=== PATIENT | male | born 1960 | race African-American/Black ===

== ENCOUNTER 2017-08-05 08:03 | Inpatient (IN) | payer MEDICAID ==
[~2017-08-05] VITALS: Ht 172.7 cm; Wt 80.6 kg
[2017-08-05] VITALS (10 sets, daily range): BP systolic 92–135; BP diastolic 60–79
[~2017-08-05 08:03] MED LIST: ADLT ASA LOW81 MG PO; BABY ASPIRIN81 MG OR; BACTRIM DS1 TAB PO; CEPHALEXIN500 MG OR; FLEXERIL PO; GLUCOTROL10 MG OR; HUMALOG PEN100 MG/M1 SC; HUMALOG100 MG/ML SC; LISINOPRIL10 MG PO; LORTAB 5/3255 MG PO; MEDDOSEPAK PO; METFORMIN500 M1 OR; METFORMIN500 MG PO; METOPROLOL OR; NAPROXEN375 MG PO; NOVOLIN 70/30; NOVOLIN 701000 UNITS; NOVOLOG MIX100 U/ML SC; ROBITUSSIN AC10 ML OR; ULTRAM50 M1 PO; UNKNOWN B/P MED
[2017-08-05 08:43] LABS: HEMATOCRIT 43.4 % (39.0-50.0); HEMOGLOBIN 14.2 g/dl (14.0-18.0); IMMATURE GRANULOCYTES 0.5 % (0.0-1.0); MEAN CELL VOLUME 90.4 fL CALC (80.0-100.0); MEAN CORPUSCULAR HGB 29.6 pG CALC (26.0-32.0); MEAN CORPUSCULAR HGB CONC 32.7 g/L CALC (32.0-36.0); NEUT# 9.8 thou/uL (1.82-7.42); RED BLOOD COUNT 4.8 mill/uL (4.70-6.10); RED CELL DISTRI WIDTH 12.3 % (11.5-15.5)
[2017-08-05 08:46] LABS: URINE BILIRUBIN - DIPSTICK NEGATIVE (NEGATIVE); URINE BLOOD DIPSTICK TRACE-INTACT (NEGATIVE); URINE CLARITY CLEAR; URINE COLOR YELLOW; URINE GLUCOSE - DIPSTICK >=1000 mg/dL (NEGATIVE); URINE KETONE 40 mg/dL (NEGATIVE); URINE LEUK ESTERASE NEGATIVE (NEGATIVE); URINE NITRITE - DIPSTICK NEGATIVE (Negative); URINE PH 5.5 (4.5-8.0); URINE PROTEIN - DIPSTICK NEGATIVE (NEG-TRACE); URINE UROBILINOGEN - DIPSTICK 0.2 E.U./dL (0.2)
[2017-08-05 08:57] LABS: ALBUMIN 4.4 g/dL (3.2-5.0); ALKALINE PHOSPHATASE 83 u/l (38-126); ANION GAP 19 (6-22 (CALC)); BILIRUBIN, TOTAL 0.9 mg/dL (0.0-1.4); BUN 21 mg/dL (9-20); BUN/CREATININE RATIO 18 (12-20 (CALC)); CALCIUM 9.8 mg/dL (8.4-10.2); CARBON DIOXIDE 27 mmol/l (22-30); CHLORIDE 96 mmol/l (95-108); CREATININE 1.2 mg/dL (0.7-1.3); GFR > 60 ML/MIN (>=60 (CALC)); GFR FOR AFR.AMER. > 60 ML/MIN (>=60 (CALC)); GLUCOSE 374 mg/dL (75-110); LIPASE 47 u/l (23-300); POTASSIUM 4.5 mmol/l (3.5-5.1); SGOT/AST 23 u/l (17-59); SGPT/ALT 29 u/l (21-72); SODIUM 138 mmol/l (137-146); TOTAL PROTEIN 7.3 g/dL (6.3-8.2)
[2017-08-05] MEDS ORDERED: LISINOPRIL10 MG PO (09:09)
[2017-08-05] MEDS ORDERED: LEVEMIR100 UNIT/M SC (09:09)
[2017-08-05] MEDS ORDERED: METFORMIN500 MG PO (09:10)
[2017-08-05 09:14] LABS: INFLUENZA A NONE DETECTED (NONE DETECT); INFLUENZA B NONE DETECTED (NONE DETECT)
[2017-08-06] VITALS (41 sets, daily range): BP systolic 93–143; BP diastolic 61–93
[2017-08-06 04:32] LABS: HEMATOCRIT 35.2 % (39.0-50.0); HEMOGLOBIN 11.5 g/dl (14.0-18.0); IMMATURE GRANULOCYTES 0.5 % (0.0-1.0); MEAN CELL VOLUME 92.1 fL CALC (80.0-100.0); MEAN CORPUSCULAR HGB 30.1 pG CALC (26.0-32.0); MEAN CORPUSCULAR HGB CONC 32.7 g/L CALC (32.0-36.0); PLATELET COUNT 135 thou/uL (130-400); RED BLOOD COUNT 3.82 mill/uL (4.70-6.10); RED CELL DISTRI WIDTH 12.6 % (11.5-15.5)
[2017-08-06 04:53] LABS: ANION GAP 12 (6-22 (CALC)); BUN 17 mg/dL (9-20); BUN/CREATININE RATIO 21 (12-20 (CALC)); CALCULATED LDLCHOLESTEROL 23 mg/dL (62-129 (CALC)); CARBON DIOXIDE 24 mmol/l (22-30); CHLORIDE 105 mmol/l (95-108); CHOLESTEROL HDL RATIO 1.8 (<4.4 (CALC)); CREATININE 0.8 mg/dL (0.7-1.3); GFR > 60 ML/MIN (>=60 (CALC)); GFR FOR AFR.AMER. > 60 ML/MIN (>=60 (CALC)); GLUCOSE 214 mg/dL (75-110); HDL CHOLESTEROL 44 mg/dL (>=40); SODIUM 138 mmol/l (137-146); TOTAL CHOLESTEROL 80 mg/dl (0-199); TOTAL TRIGLYCERIDES 58 mg/dl (30-149); VLDL CHOLESTROL 12 mg/dl (8-62 (CALC))
[2017-08-06 04:55] LABS: CALCIUM 7.8 mg/dL (8.4-10.2)
[2017-08-06 05:39] LABS: BAND 8 % (0-8); MANUAL DIFFERENTIAL YES; PLATELET ESTIMATE NORMAL
[2017-08-06 09:42] LABS: BARBITURATES NEGATIVE (NEGATIVE); COCAINE POSITIVE (NEGATIVE); METHADONE NEGATIVE (NEGATIVE); OXCYCODONE NEGATIVE (NEGATIVE); TETRAHYDROCANNABIONOL NEGATIVE (NEGATIVE); TRICYLIC ANTIDEPRESSANTS NEGATIVE (NEGATIVE)
[2017-08-07] VITALS (12 sets, daily range): BP systolic 90–137; BP diastolic 65–94
[2017-08-07 07:59] LABS: HEMATOCRIT 34.4 % (39.0-50.0); IMMATURE GRANULOCYTES 0.4 % (0.0-1.0); MEAN CORPUSCULAR HGB 29.4 pG CALC (26.0-32.0); PLATELET COUNT 119 thou/uL (130-400); RED BLOOD COUNT 3.74 mill/uL (4.70-6.10); RED CELL DISTRI WIDTH 12.2 % (11.5-15.5)
[2017-08-07 08:15] LABS: ANION GAP 10 (6-22 (CALC)); BUN 11 mg/dL (9-20); BUN/CREATININE RATIO 15 (12-20 (CALC)); CALCIUM 8.3 mg/dL (8.4-10.2); CARBON DIOXIDE 27 mmol/l (22-30); CHLORIDE 106 mmol/l (95-108); CREATININE 0.7 mg/dL (0.7-1.3); GFR > 60 ML/MIN (>=60 (CALC)); GFR FOR AFR.AMER. > 60 ML/MIN (>=60 (CALC)); GLUCOSE 119 mg/dL (75-110); POTASSIUM 4.1 mmol/l (3.5-5.1); SODIUM 139 mmol/l (137-146)
[2017-08-07 08:39] LABS: BAND 6 % (0-8); MANUAL DIFFERENTIAL YES
[2017-08-08] VITALS (10 sets, daily range): BP systolic 104–140; BP diastolic 69–92
[2017-08-08 06:28] LABS: HEMOGLOBIN 10.9 g/dl (14.0-18.0); IMMATURE GRANULOCYTES 0.5 % (0.0-1.0); MEAN CELL VOLUME 89.9 fL CALC (80.0-100.0); MEAN CORPUSCULAR HGB 29.7 pG CALC (26.0-32.0); NEUT# 4.39 thou/uL (1.82-7.42); RED BLOOD COUNT 3.67 mill/uL (4.70-6.10)
[2017-08-08 06:51] LABS: ANION GAP 13 (6-22 (CALC)); BUN 15 mg/dL (9-20); BUN/CREATININE RATIO 19 (12-20 (CALC)); CALCIUM 8.6 mg/dL (8.4-10.2); CARBON DIOXIDE 24 mmol/l (22-30); CHLORIDE 102 mmol/l (95-108); CREATININE 0.8 mg/dL (0.7-1.3); GFR > 60 ML/MIN (>=60 (CALC)); GFR FOR AFR.AMER. > 60 ML/MIN (>=60 (CALC)); GLUCOSE 400 mg/dL (75-110); POTASSIUM 4.5 mmol/l (3.5-5.1); SODIUM 134 mmol/l (137-146)
[2017-08-09 05:25] VITALS: BP 129/77
[2017-08-09 06:33] LABS: HEMATOCRIT 31.1 % (39.0-50.0); HEMOGLOBIN 10.3 g/dl (14.0-18.0); IMMATURE GRANULOCYTES 0.6 % (0.0-1.0); MEAN CELL VOLUME 90.1 fL CALC (80.0-100.0); MEAN CORPUSCULAR HGB 29.9 pG CALC (26.0-32.0); MEAN CORPUSCULAR HGB CONC 33.1 g/L CALC (32.0-36.0); NEUT# 4.93 thou/uL (1.82-7.42); RED BLOOD COUNT 3.45 mill/uL (4.70-6.10)
[2017-08-09 06:45] LABS: ANION GAP 11 (6-22 (CALC)); BUN 13 mg/dL (9-20); BUN/CREATININE RATIO 17 (12-20 (CALC)); CALCIUM 8.6 mg/dL (8.4-10.2); CARBON DIOXIDE 29 mmol/l (22-30); CHLORIDE 102 mmol/l (95-108); CREATININE 0.7 mg/dL (0.7-1.3); GFR > 60 ML/MIN (>=60 (CALC)); GFR FOR AFR.AMER. > 60 ML/MIN (>=60 (CALC)); GLUCOSE 175 mg/dL (75-110); POTASSIUM 3.8 mmol/l (3.5-5.1); SODIUM 138 mmol/l (137-146)
[2017-08-09 07:56] VITALS: BP 132/65
[2017-08-09 12:01] VITALS: BP 133/86
[2017-08-09 15:11] VITALS: BP 137/89
[2017-08-09 18:55] VITALS: BP 133/83
[2017-08-09 23:17] VITALS: BP 108/73
[2017-08-10 04:40] VITALS: BP 111/17
[2017-08-10 07:15] VITALS: BP 98/73
[2017-08-10 11:10] VITALS: BP 123/77
[2017-08-10 15:05] VITALS: BP 118/77
[2017-08-10 19:15] VITALS: BP 121/83
[2017-08-10 23:12] VITALS: BP 120/76
[2017-08-11 03:14] VITALS: BP 121/80
[2017-08-11 06:57] LABS: HEMATOCRIT 34.1 % (39.0-50.0); HEMOGLOBIN 11.1 g/dl (14.0-18.0); IMMATURE GRANULOCYTES 4.7 % (0.0-1.0); MEAN CELL VOLUME 90.2 fL CALC (80.0-100.0); MEAN CORPUSCULAR HGB 29.4 pG CALC (26.0-32.0); MEAN CORPUSCULAR HGB CONC 32.6 g/L CALC (32.0-36.0); NEUT# 6.86 thou/uL (1.82-7.42); RED BLOOD COUNT 3.78 mill/uL (4.70-6.10); RED CELL DISTRI WIDTH 12.2 % (11.5-15.5)
[2017-08-11 07:09] LABS: ANION GAP 14 (6-22 (CALC)); BUN 14 mg/dL (9-20); BUN/CREATININE RATIO 17 (12-20 (CALC)); CALCIUM 9.7 mg/dL (8.4-10.2); CARBON DIOXIDE 30 mmol/l (22-30); CHLORIDE 101 mmol/l (95-108); CREATININE 0.8 mg/dL (0.7-1.3); GFR > 60 ML/MIN (>=60 (CALC)); GFR FOR AFR.AMER. > 60 ML/MIN (>=60 (CALC)); GLUCOSE 56 mg/dL (75-110); POTASSIUM 4.1 mmol/l (3.5-5.1); SODIUM 140 mmol/l (137-146)
[2017-08-11 09:22] VITALS: BP 105/70
[2017-08-11 15:07] VITALS: BP 110/70
[2017-08-11 16:00] VITALS: BP 115/78
[2017-08-11 18:57] VITALS: BP 124/83
[2017-08-11 23:55] VITALS: BP 120/81
[2017-08-12 05:45] LABS: HEMOGLOBIN 10.3 g/dl (14.0-18.0); MEAN CELL VOLUME 91.7 fL CALC (80.0-100.0); MEAN CORPUSCULAR HGB 29.5 pG CALC (26.0-32.0); MEAN CORPUSCULAR HGB CONC 32.2 g/L CALC (32.0-36.0); RED BLOOD COUNT 3.49 mill/uL (4.70-6.10); RED CELL DISTRI WIDTH 12.3 % (11.5-15.5)
[2017-08-12 06:08] LABS: ANION GAP 14 (6-22 (CALC)); BUN 15 mg/dL (9-20); BUN/CREATININE RATIO 15 (12-20 (CALC)); CALCIUM 9.1 mg/dL (8.4-10.2); CARBON DIOXIDE 29 mmol/l (22-30); CHLORIDE 101 mmol/l (95-108); GFR > 60 ML/MIN (>=60 (CALC)); GFR FOR AFR.AMER. > 60 ML/MIN (>=60 (CALC)); GLUCOSE 149 mg/dL (75-110); POTASSIUM 4.3 mmol/l (3.5-5.1); SODIUM 139 mmol/l (137-146)
[2017-08-12 09:07] VITALS: BP 123/83
[2017-08-12 13:51] VITALS: BP 120/76
[2017-08-12 16:00] VITALS: BP 122/77
[2017-08-12 19:15] VITALS: BP 137/83
[2017-08-12 23:29] VITALS: BP 125/75
[2017-08-13 04:10] VITALS: BP 124/82
[2017-08-13 07:49] VITALS: BP 130/86
[2017-08-13 10:57] VITALS: BP 129/77
[2017-08-13] MEDS ORDERED: CUBICIN500 MG IV (11:06)
[2017-08-13] MEDS ORDERED: PREDNISONE10 MG PO (11:10)
== END 2017-08-13 13:32 | disposition home or self-care (01) | DRG 871 ==
LOC: ED 08:03 → ED-I 14:47 → ED 15:07 → ICU 15:08 → MS2 15:08
PROVIDERS: Family Medicine; Internal Medicine; Nurse Practitioner Family; ADMIT Internal Medicine; ATTEND Internal Medicine
PROC: 009U3ZX Drainage of Spinal Canal, Percutaneous Approach, Diagnostic (ICD-10-PCS; principal; 2017-08-05)
PROC: 0T9B70Z Drainage of Bladder with Drainage Device, Via Natural or Artificial Opening (ICD-10-PCS; 2017-08-05)
PROC: 02HV33Z Insertion of Infusion Device into Superior Vena Cava, Percutaneous Approach (ICD-10-PCS; 2017-08-05)
PROC: 0S9C3ZX Drainage of Right Knee Joint, Percutaneous Approach, Diagnostic (ICD-10-PCS; 2017-08-09)
DX: A41.02 Sepsis due to Methicillin resistant Staphylococcus aureus (principal); R65.21 Severe sepsis with septic shock; J02.0 Streptococcal pharyngitis; E11.65 Type 2 diabetes mellitus with hyperglycemia; I10 Essential (primary) hypertension; M13.89 Other specified arthritis, multiple sites; F10.10 Alcohol abuse, uncomplicated; F14.10 Cocaine abuse, uncomplicated; Z79.4 Long term (current) use of insulin; Z91.14 Patient's other noncompliance with medication regimen
CPT/HCPCS: J0692; J0878; J3370; Q9967

== ENCOUNTER 2017-08-26 00:51 | Emergency (ER) | payer MEDICAID ==
[~2017-08-26] VITALS: Ht 172.7 cm; Wt 77.3 kg
[~2017-08-26 00:51] MED LIST changes: +CUBICIN500 MG IV; +LEVEMIR100 UNIT/M SC; +PREDNISONE10 MG PO
[2017-08-26 01:46] LABS: HEMATOCRIT 36.6 % (39.0-50.0); HEMOGLOBIN 11.9 g/dl (14.0-18.0); IMMATURE GRANULOCYTES 0.3 % (0.0-1.0); MEAN CELL VOLUME 91.3 fL CALC (80.0-100.0); MEAN CORPUSCULAR HGB 29.7 pG CALC (26.0-32.0); MEAN CORPUSCULAR HGB CONC 32.5 g/L CALC (32.0-36.0); NEUT# 4.95 thou/uL (1.82-7.42); RED BLOOD COUNT 4.01 mill/uL (4.70-6.10)
[2017-08-26 01:58] LABS: ALBUMIN 4.2 g/dL (3.2-5.0); ALKALINE PHOSPHATASE 172 u/l (38-126); ANION GAP 17 (6-22 (CALC)); BILIRUBIN, TOTAL 0.4 mg/dL (0.0-1.4); BUN 17 mg/dL (9-20); BUN/CREATININE RATIO 18 (12-20 (CALC)); CARBON DIOXIDE 29 mmol/l (22-30); CHLORIDE 97 mmol/l (95-108); CPK 71 u/l (52-200); CREATININE 0.9 mg/dL (0.7-1.3); GFR > 60 ML/MIN (>=60 (CALC)); GFR FOR AFR.AMER. > 60 ML/MIN (>=60 (CALC)); POTASSIUM 4.5 mmol/l (3.5-5.1); SGOT/AST 19 u/l (17-59); SGPT/ALT 28 u/l (21-72); SODIUM 138 mmol/l (137-146); TOTAL PROTEIN 7.4 g/dL (6.3-8.2)
[2017-08-26 02:07] LABS: MYOGLOBIN 26 ng/mL (0 - 121)
[2017-08-26] MEDS ORDERED: ULTRAM50 M1 PO (02:54)
[2017-08-26] MEDS ORDERED: FLEXERIL PO (02:54)
[2017-08-26 03:00] LABS: URINE BILIRUBIN - DIPSTICK NEGATIVE (NEGATIVE); URINE BLOOD DIPSTICK NEGATIVE (NEGATIVE); URINE COLOR YELLOW; URINE GLUCOSE - DIPSTICK >=1000 mg/dL (NEGATIVE); URINE KETONE NEGATIVE (NEGATIVE); URINE LEUK ESTERASE NEGATIVE (NEGATIVE); URINE NITRITE - DIPSTICK NEGATIVE (Negative); URINE PROTEIN - DIPSTICK NEGATIVE (NEG-TRACE); URINE UROBILINOGEN - DIPSTICK 0.2 E.U./dL (0.2)
[2017-08-26 03:01] LABS: URINE CLARITY CLEAR
[2017-08-26 03:02] LABS: BARBITURATES NEGATIVE (NEGATIVE); COCAINE NEGATIVE (NEGATIVE); METHADONE NEGATIVE (NEGATIVE); OXCYCODONE NEGATIVE (NEGATIVE); TETRAHYDROCANNABIONOL NEGATIVE (NEGATIVE); TRICYLIC ANTIDEPRESSANTS NEGATIVE (NEGATIVE)
[2017-08-26 03:18] VITALS: BP 125/80
== END 2017-08-26 03:30 | disposition home or self-care (01) | DRG 552 ==
LOC: ED 00:51
PROVIDERS: Emergency Medicine
DX: S16.1XXA Strain of muscle, fascia and tendon at neck level, initial encounter (principal); M47.812 Spondylosis without myelopathy or radiculopathy, cervical region; E11.9 Type 2 diabetes mellitus without complications; I10 Essential (primary) hypertension; X58.XXXA Exposure to other specified factors, initial encounter

== ENCOUNTER 2017-08-29 10:30 | Emergency (ER) | payer MEDICAID ==
[~2017-08-29] VITALS: Ht 172.7 cm; Wt 80.0 kg
[2017-08-29 11:15] LABS: HEMATOCRIT 34.5 % (39.0-50.0); HEMOGLOBIN 11.3 g/dl (14.0-18.0); IMMATURE GRANULOCYTES 0.6 % (0.0-1.0); MEAN CELL VOLUME 89.4 fL CALC (80.0-100.0); MEAN CORPUSCULAR HGB 29.3 pG CALC (26.0-32.0); MEAN CORPUSCULAR HGB CONC 32.8 g/L CALC (32.0-36.0); NEUT# 5.18 thou/uL (1.82-7.42); RED CELL DISTRI WIDTH 12.4 % (11.5-15.5)
[2017-08-29 11:36] LABS: RED BLOOD COUNT 3.86 mill/uL (4.70-6.10)
[2017-08-29 11:41] LABS: ALBUMIN 3.9 g/dL (3.2-5.0); ALKALINE PHOSPHATASE 95 u/l (38-126); ANION GAP 20 (6-22 (CALC)); BILIRUBIN, TOTAL 0.8 mg/dL (0.0-1.4); BUN 20 mg/dL (9-20); BUN/CREATININE RATIO 21 (12-20 (CALC)); CARBON DIOXIDE 25 mmol/l (22-30); CHLORIDE 95 mmol/l (95-108); GFR > 60 ML/MIN (>=60 (CALC)); GFR FOR AFR.AMER. > 60 ML/MIN (>=60 (CALC)); POTASSIUM 3.9 mmol/l (3.5-5.1); SGOT/AST 28 u/l (17-59); SGPT/ALT 30 u/l (21-72); SODIUM 136 mmol/l (137-146); TOTAL PROTEIN 7.1 g/dL (6.3-8.2)
[2017-08-29 11:53] LABS: MYOGLOBIN 38 ng/mL (0 - 121)
[2017-08-29 12:18] LABS: INFLUENZA A NONE DETECTED (NONE DETECT); INFLUENZA B NONE DETECTED (NONE DETECT)
[2017-08-29 13:41] LABS: URINE BILIRUBIN - DIPSTICK NEGATIVE (NEGATIVE); URINE BLOOD DIPSTICK SMALL (NEGATIVE); URINE CLARITY CLEAR; URINE COLOR YELLOW; URINE GLUCOSE - DIPSTICK >=1000 mg/dL (NEGATIVE); URINE KETONE >=80 mg/dL (NEGATIVE); URINE LEUK ESTERASE NEGATIVE (NEGATIVE); URINE NITRITE - DIPSTICK NEGATIVE (Negative); URINE PROTEIN - DIPSTICK 30 mg/dL (NEG-TRACE); URINE SPECIFIC GRAVITY >=1.030; URINE UROBILINOGEN - DIPSTICK 0.2 E.U./dL (0.2)
[2017-08-29 13:44] LABS: BARBITURATES NEGATIVE (NEGATIVE); COCAINE NEGATIVE (NEGATIVE); METHADONE NEGATIVE (NEGATIVE); OXCYCODONE NEGATIVE (NEGATIVE); TETRAHYDROCANNABIONOL NEGATIVE (NEGATIVE); TRICYLIC ANTIDEPRESSANTS NEGATIVE (NEGATIVE)
[2017-08-29 13:51] LABS: URINE AMORPH SEDIMENT FEW hpf (NONE-FER); URINE RBC 0-2 RBC/hpf (0-5); URINE WBC 0-2 WBC/hpf (0-5)
[2017-08-29 14:00] LABS: URINE COARSE GRANULAR CAST FEW lpf
[2017-08-29 15:43] VITALS: BP 146/86
== END 2017-08-29 15:30 | disposition short-term general hospital (02) | DRG 556 ==
LOC: ED 10:30
PROVIDERS: Family Medicine
DX: M79.89 Other specified soft tissue disorders (principal); R78.81 Bacteremia; G93.9 Disorder of brain, unspecified; I10 Essential (primary) hypertension; E11.9 Type 2 diabetes mellitus without complications; B95.62 Methicillin resistant Staphylococcus aureus infection as the cause of diseases classified elsewhere
CPT/HCPCS: Q9967

== ENCOUNTER 2019-01-11 13:20 | Observation (INO) | payer OTHER ==
[~2019-01-11] VITALS: Ht 172.7 cm; Wt 70.0 kg
--- NOTE | 2019-01-11 13:37 | NUR ---
PATIENT TO ROOM VIA EMS AND PHYSICIAN AT BEDSIDE. PATIENT STATES LEFT SIDED CHEST PAIN AND GENERAL MALAISE WITH NAUSEA AND VOMITING STARTING YESTERDAY. PATIENT HAS FEVER AND COMPLAINS OF SORE STIFF NECK DIFFEENT FROM CHRONIC NECK PAIN THE PATIENT USUALLY HAS. MD EDUCATES PATIENT ON PROCEDURE FOR LUMBAR PUNCTURE AND PATIENT VERBALIZES UNDERSTANDING
--- NOTE | 2019-01-11 13:40 | NUR ---
MD AT BEDSIDE, PT REMAINS STABLE
[2019-01-11 13:46] LABS: GFR > 60 ML/MIN (>=60 (CALC)); GFR FOR AFR.AMER. > 60 ML/MIN (>=60 (CALC))
[2019-01-11 13:48] LABS: HEMATOCRIT 39.3 % (39.0-50.0); HEMOGLOBIN 12.7 g/dl (14.0-18.0); IMMATURE GRANULOCYTES 0.5 % (0.0-5.0); MEAN CELL VOLUME 88.9 fL CALC (80.0-100.0); MEAN CORPUSCULAR HGB 28.7 pG CALC (26.0-32.0); MEAN CORPUSCULAR HGB CONC 32.3 g/L CALC (32.0-36.0); NEUT# 8.6 thou/uL (1.82-7.42); RED BLOOD COUNT 4.42 mill/uL (4.70-6.10); RED CELL DISTRI WIDTH 12.1 % (11.5-15.5)
--- NOTE | 2019-01-11 13:52 | NUR ---
XRAY AT BEDSIDE, PT REMAINS ON STOVE MECHANIC. PT DENIES ANY CHANGE IN STATUS. LAB AT BEDSIDE FOR CULTURES.
[2019-01-11 14:00] LABS: ALBUMIN 4.3 g/dL (3.2-5.0); BUN 18 mg/dL (9-20); BUN/CREATININE RATIO 20 (12-20 (CALC)); CARBON DIOXIDE 29 mmol/l (22-30); CHLORIDE 94 mmol/l (95-108); CREATININE 0.9 mg/dL (0.7-1.3); ETHYL ALCOHOL 0 mg/dl (0-30); GFR > 60 ML/MIN (>=60 (CALC)); GFR FOR AFR.AMER. > 60 ML/MIN (>=60 (CALC)); SGOT/AST 21 u/l (17-59); SODIUM 134 mmol/l (137-146); TOTAL PROTEIN 7.4 g/dL (6.3-8.2)
[2019-01-11 14:08] LABS: ALKALINE PHOSPHATASE 93 u/l (38-126); ANION GAP 16 (6-22 (CALC)); POTASSIUM 4.7 mmol/l (3.5-5.1)
--- NOTE | 2019-01-11 14:23 | NUR ---
PT RETURNS FROM XRAY. NO CHANGE IN CONDITION.
--- NOTE | 2019-01-11 14:33 | NUR ---
URINE AND FLU SPECIMEN OBTAINED. SENT TO LAB.
[2019-01-11 14:39] LABS: URINE BILIRUBIN - DIPSTICK NEGATIVE (NEGATIVE); URINE BLOOD DIPSTICK NEGATIVE (NEGATIVE); URINE COLOR YELLOW; URINE GLUCOSE - DIPSTICK >=1000 mg/dL (NEGATIVE); URINE KETONE TRACE mg/dL (NEGATIVE); URINE LEUK ESTERASE NEGATIVE (NEGATIVE); URINE NITRITE - DIPSTICK NEGATIVE (Negative); URINE PH 7.5 (4.5-8.0); URINE PROTEIN - DIPSTICK NEGATIVE (NEG-TRACE)
[2019-01-11 14:43] LABS: BARBITURATES NEGATIVE (NEGATIVE); COCAINE NEGATIVE (NEGATIVE); METHADONE NEGATIVE (NEGATIVE); OXCYCODONE NEGATIVE (NEGATIVE); TETRAHYDROCANNABIONOL NEGATIVE (NEGATIVE); TRICYLIC ANTIDEPRESSANTS NEGATIVE (NEGATIVE)
--- NOTE | 2019-01-11 14:59 | NUR ---
MD AT BEDSIDE FOR LP, PT TOLERATES WELL.
--- NOTE | 2019-01-11 15:08 | NUR ---
PT RESTING WITH MONITOR IN PLACE. PT CONTINUES TO IMPROVE. PT DENIES C/P AT THIS TIME. PT STATES " I HURT ALL OVER".
--- NOTE | 2019-01-11 15:40 | NUR ---
PT REMAINS STABLE. PT REMAINS ON MONITOR, RESTING WITH EYES CLOSED, DENIES A ADDITIONAL COMPLAINTS
--- NOTE | 2019-01-11 16:24 | NUR ---
PT MEDICATED PER MD ORDER. PT TOLERATES WELL.
--- NOTE | 2019-01-11 16:55 | NUR ---
PT REASSESSMENT COMPLETE, PT RESTING MEDICATION INFUSING PER ORDER. IV SITE APPEARS HEALTHY, NO REDNESS OR IRRITATION. GLOBAL VP CREATIVE + CONTENT MARKETING IN PLACE. PT REMAINS STABLE.
--- NOTE | 2019-01-11 17:12 | NUR ---
RECEIVED REPORT FROM RANI GLYNN IN ER AT [id number]
--- NOTE | 2019-01-11 17:15 | NUR ---
PT TRANSFERED TO MED SURG. W/OUT INCIDENT. BEDSIDE REPORT TO LIAM, DENIES ANY QUESTIONS UPON COMPLETION.
--- NOTE | 2019-01-11 17:15 | NUR ---
REPORT TO [facility]. PT REMAINS STABLE. [place] AT BEDSIDE
--- NOTE | 2019-01-11 17:18 | NUR ---
PT ARRIVED FROM ER VIA STRETCHER AT 1718 WITH IV SITES AND IV FLUIDS. TELE BOX BROUGHT WITH THE STAFF/ AMD 1 GUARD.
[2019-01-11 17:30] VITALS: BP 137/87
--- NOTE | 2019-01-11 17:30 | NUR ---
ASSESSMENT IS COMPLETED: PT C/O NECK AND LEFT CHEST DISCOMFORT, IV SITES IS FREE FROM REDNESS OR EDEMA. BREATH SOUNDS ARE CLEAR BILATERALLY, NO C/O SOB, HR IS REG,PULSES ARE STRONG X4, ABD IS SOFT WITH ACTIVE BS., TELE MONITOR IN PLACE. PT HAS A GUARD WITH HIM FROM [employer] SHACKLED ON R LEG TO THE BED.
[2019-01-11 19:07] VITALS: BP 103/63
[2019-01-12] VITALS (8 sets, daily range): BP systolic 105–149; BP diastolic 64–92
[2019-01-12 04:54] LABS: HEMATOCRIT 36.5 % (39.0-50.0); HEMOGLOBIN 11.9 g/dl (14.0-18.0); MEAN CELL VOLUME 89.2 fL CALC (80.0-100.0); MEAN CORPUSCULAR HGB 29.1 pG CALC (26.0-32.0); MEAN CORPUSCULAR HGB CONC 32.6 g/L CALC (32.0-36.0); RED BLOOD COUNT 4.09 mill/uL (4.70-6.10); RED CELL DISTRI WIDTH 12.1 % (11.5-15.5)
[2019-01-12 04:55] LABS: ANION GAP 12 (6-22 (CALC)); BUN 17 mg/dL (9-20); BUN/CREATININE RATIO 24 (12-20 (CALC)); CARBON DIOXIDE 30 mmol/l (22-30); CHLORIDE 103 mmol/l (95-108); CREATININE 0.7 mg/dL (0.7-1.3); GFR > 60 ML/MIN (>=60 (CALC)); GFR FOR AFR.AMER. > 60 ML/MIN (>=60 (CALC)); MAGNESIUM 2.1 mg/dL (1.6-2.3); POTASSIUM 4.5 mmol/l (3.5-5.1); SODIUM 140 mmol/l (137-146)
--- NOTE | 2019-01-12 07:19 | NUR ---
Vancomycin consult Age: 58 yo Serum creatinine: 0.7 mg/dL Height: 68.0 Inches Weight (kg): 70 IBW (kg): 68.40 Dosing wt(kg): 70 Estimated Creatinine clearance (ml/min): 114.0 49.0 Vd (liters): (factor used: 0.7 L/kg) Vu (hr-1): 0.099 Half life (hrs): 7.00 Vancomycin 1000 mg Q8 hrs Infusion time (hrs): 2.0 Predicted peak (mcg/mL): 34 Predicted trough (mcg/mL): 18
--- NOTE | 2019-01-12 07:30 | NUR ---
PT SITTING UP IN BED; A/O X3; RESP EVEN AND UNLABORED ON ROOM AIR; TELE IN PLACE; #20G RAC, N/S @100CC/HR; IVS APPEARS HEALTHY; EXPLAINED INSULIN TO PT, 1UNIT THIS AM; PT REUSED INSULIN, STATES "ONE UNIT WILL NOT DO ME ANY GOOD" HE LATER AGREED TO HAVE INSULIN; PT NOW SITTING UP IN BED EATING BREAKFAST; GUARD AT BEDSIDE; CALL SRIVASTAVA IN REACH; URINAL AT BEDSIDE;
--- NOTE | 2019-01-12 10:48 | NUR ---
PT OFF FLOOR, IN STABLE CONDITION, VIA W/C ACCOMPANIED BY TALENT AGENT AND A GUARD.
--- NOTE | 2019-01-12 11:03 | NUR ---
PT RETURNED TO FLOOR IN STABLE CONDITION; ACCOMPANIED BY OPERATIONS CLERK AND GUARD; PT NOW BEING ASSISTED WITH A SHOWER. LINEN CHANGE DONE.
--- NOTE | 2019-01-12 12:06 | NUR ---
PT SITTING UP IN BED EATING LUNCH; IVF INFUSING WITHOUT DIFFICLTY; URINAL IN REACH; GUARD AT BEDSIDE;
--- NOTE | 2019-01-12 12:50 | NUR ---
PT APPEARS TO BE SLEEPING, RESP EVEN AND UNLABORED.
--- NOTE | 2019-01-12 13:47 | NUR ---
PT SITTING UP IN BED AWAKE; REQ JUICE AND CRACKER, WHICH WAS PROVIDED; VOIDED 500CC, CLEAR, YELLOW URINE; GUARD AT BEDSIDE. CALL SRIVASTAVA IN REACH.
--- NOTE | 2019-01-12 16:00 | NUR ---
PT SITTING UP IN BED WATCHING TV; RESP EVEN AND UNLABORED; VACO INFUSING, IVS APPEARS HEALTHY; MICHAEL YADAV APPLIED TO BILAT LE; IS AT BEDSIDE, PT ENCOURAGE USE; GUARD PRESENT; CALL SRIVASTAVA IN REACH.
--- NOTE | 2019-01-12 17:26 | NUR ---
PT SITTING UP IN BED EATING SUPPER; VANCO INFUSING WELL; URINAL AT BEDSIDE; PT VOICE NO CONCERNS; CALL SRIVASTAVA IN REACH.
--- NOTE | 2019-01-12 19:00 | NUR ---
RECEIVED REPORT FROM NURSE COWART PATIENT RESTING IN BED, C/O PAIN ON LETERAL LEFT NECK, PRN MOTRIN GIVEN, WILL REEVALUATE.
--- NOTE | 2019-01-12 20:00 | NUR ---
PATIENT ALERT AND ORIENTED ABLE TO MAKE NEEDS KNOWN, WITH AN ONGOING IV OF NS @ 100CC/HR INFUSING WELL ON RAC, REMAINS ON TELE SR 94, LAST BM 01/11, WILL CONTINUE TO MONITOR.
--- NOTE | 2019-01-12 22:48 | NUR ---
RECEIVED A PHONE CALL FROM ED PATIENT'S HR IS AT 130'S, ASSESSED PATIENT C/O PAIN ON LEFT SIDE OF THE NECK A MILD CHEST PAIN, ASSESED PATIENT BP 119/74 HR 124 TEMP 98.6 R 18, EKG ORDERED.
--- NOTE | 2019-01-12 23:21 | NUR ---
DEEPTI JONES ABOUT PATIENT'S COMPLAINT AND ABOUT THE HR 130'S, AND RELAYED EKG READING, WITH ORDERS MADE.
[2019-01-13 03:53] VITALS: BP 118/76
--- NOTE | 2019-01-13 04:00 | NUR ---
PATIENT APPEARS TO BE RESTING INE BED EYES CLOSED, WITH EVEN UNLABORED BREATHING CALL LIGHT AT REACH.
[2019-01-13 05:13] LABS: HEMATOCRIT 38.2 % (39.0-50.0); HEMOGLOBIN 12.1 g/dl (14.0-18.0); IMMATURE GRANULOCYTES 0.4 % (0.0-5.0); MEAN CELL VOLUME 91.2 fL CALC (80.0-100.0); MEAN CORPUSCULAR HGB 28.9 pG CALC (26.0-32.0); MEAN CORPUSCULAR HGB CONC 31.7 g/L CALC (32.0-36.0); NEUT# 6.02 thou/uL (1.82-7.42); RED BLOOD COUNT 4.19 mill/uL (4.70-6.10); RED CELL DISTRI WIDTH 12.4 % (11.5-15.5)
[2019-01-13 05:36] LABS: BUN 15 mg/dL (9-20); BUN/CREATININE RATIO 18 (12-20 (CALC)); CARBON DIOXIDE 30 mmol/l (22-30); CHLORIDE 103 mmol/l (95-108); CREATININE 0.8 mg/dL (0.7-1.3); GFR > 60 ML/MIN (>=60 (CALC)); GFR FOR AFR.AMER. > 60 ML/MIN (>=60 (CALC)); SODIUM 141 mmol/l (137-146)
[2019-01-13 05:49] LABS: ANION GAP 12 (6-22 (CALC)); POTASSIUM 4.2 mmol/l (3.5-5.1)
--- NOTE | 2019-01-13 07:10 | NUR ---
REPORT RECEIVED FROM GRETTA CONNER;PT APPEARS TO BE SLEEPING IN SEMI FOWLERS POSITION WITH X1 GUARD AT BEDSIDE;RESPIRATIONS APPEAR EVEN AND UNLABORED ON RA;NO S/S OF DISTRESS NOTED;IV FLUIDS INFUSING WELL TO RAC;TELE MONITORING IN PLACE;ALL SAFETY PRECAUTIONS IN PLACE WITH BED IN THE LOWEST POSITION AND CALL LIGHT IN REACH;WILL CONTINUE TO MONITOR
[2019-01-13 07:37] VITALS: BP 132/86
--- NOTE | 2019-01-13 07:40 | NUR ---
PT RESTING IN SEMI FOWLERS POSITION WITH X1 GUARD AT BEDSIDE, A&O X4;VS OBTAINED AND ASSESSMENT COMPLETED, CURRENT TEMP 100.7; AC LOWERED AND BLANKETS REMOVED;PT REPORTS LEFT SIDED NECK AND CHEST PAIN RATING 10/10 ON THE PAIN SCALE, PT MEDICATED WITH PRN MOTRIN 800MG PO AT THIS TIME;RESPIRATIONS EVEN AND UNLABORED ON RA,CLEAR LUNG SOUNDS;ABDOMEN SOFT ON PALPATION AND ACTIVE IN ALL 4 QUADRANTS;STRONG PEDAL PULSES;SKIN INTACT;#22G TO RAC INFUSING NS @ 100ML/HR,SITE APPEARS HEALTHY;TELE MONITORING IN PLACE;ACCUCHECK 151, PT COVERED WITH SLIDING SCALE NOVOLOG PER ORDER;CONTACT PRECAUTIONS IN PLACE FOR HX OF MRSA;PT DENIES ANY ADDITIONAL NEEDS AT THIS TIME AND IS ENCOURAGED TO CALL FOR ASSISTANCE IF NEEDED;CALL LIGHT IN REACH;WILL CONTINUE TO MONITOR
--- NOTE | 2019-01-13 07:59 | NUR ---
Preliminary blood culture results showing 1 bottle gram positive cocci, called to physician. Pt has coverage with cefepime and vancomycin.
--- NOTE | 2019-01-13 08:48 | NUR ---
Vancomycin consult Weight: 70 Kilograms Current dose being given: 1000 mg Current dosing interval: 8 hrs Current infusion time (hrs): 2 Trough level obtained: 11 mcg/ml Timing of trough - # of hrs before next dose: 0.5 Hrs New rate constant (natalia): 0.140 hr-1 Half-life: 4.95 Hours Vd from levels: 49.00 Liters (0.7 L/kg) CLvanco= 6.860 L/hr Change Vancomycin to 1500 mg Q8H starting at 1600 today. Infuse over 2 hrs Expected Cpeak: 40 mcg/mL Expected Ctrough: 17.1 mcg/mL
--- NOTE | 2019-01-13 09:07 | NUR ---
TEMP RE-CHECK 99.7
[2019-01-13 11:15] VITALS: BP 128/81
--- NOTE | 2019-01-13 11:29 | NUR ---
PT RESTING IN SEMI FOWLERS POSITION WITH X1 GUARD AT BEDSIDE AND RIGHT LEG SHACKLED TO BED; AT BEDSIDE DISCUSSING POC INCLUDING MRI OF NECK AND PT VERBALIZES UNDERSTANDING;RESPIRATIONS EVEN AND UNLABORED ON RA;PT REPORTS NECK PAIN RATING 5/10 ON THE PAIN SCALE BUT DENIES THE NEED FOR PAIN MEDICATION AT THIS TIME;IV FLUIDS INFUSING WELL TO RAC PER ORDER;TELE MONITORING IN PLACE;ACCUCHECK WAS 173, PT WAS COVERED WITH SLIDING SCALE INSULIN;PT DENIES ANY ADDITIONAL NEEDS AT THIS TIME AND IS ENCOURAGED TO CALL FOR ASSISTANCE IF NEEDED;CALL LIGHT IN REACH;WILL CONTINUE TO MONITOR
--- NOTE | 2019-01-13 13:20 | NUR ---
PT REPORTS LEFT NECK AND CHEST PAIN RATING 10/10 ON THE PAIN SCALE AND REQUESTS PAIN MEDICATION;PT MEDICATED WITH PRN DILAUDID 1MG IVP AT THIS TIME;WILL CONTINUE TO MONITOR FOR EFFECTIVENESS
--- NOTE | 2019-01-13 14:40 | NUR ---
PT TRANSPORTED TO MRI VIA WHEELCHAIR IN STABLE CONDITION ACCOMPANIED BY VOLUNTEER AND 1 GUARD.
--- NOTE | 2019-01-13 15:28 | NUR ---
PT RETURNED TO MED/SURG ROOM 268 IN STABLE CONDITION VIA WHEELCHAIR ACCOMPANIED BY 1 GUARD AND VOLUNTEER.PT RE-POSITIONED INTO BED WITH 1 PERSON ASSIST AND RIGHT LEG SHACKLED TO THE BED;RESPIRATIONS EVEN AND UNLABORED ON RA;PT REPORTS THAT PAIN HAS DECREASED SIGNIFICANTLY;IV SITE TO RAC RE-STARTED @ 100ML/HR;TELE MONITORING IN PLACE;PT DENIES ANY ADDITIONAL NEEDS AT THIS TIME;ENCOURAGED TO CALL FOR ASSISTANCE IF NEEDED;CALL LIGHT IN REACH;WILL CONTINUE TO MONITOR
[2019-01-13 16:20] VITALS: BP 148/89
--- NOTE | 2019-01-13 17:40 | NUR ---
PT REPORTS LEFT NECK AND CHEST PAIN RATING 7/10 ON THE PAIN SCALE AND REQUESTS PAIN MEDICATION;PT TO BE MEDICATED WITH PRN DILAUDID 1MG IVP;WILL CONTINUE TO MONITOR
--- NOTE | 2019-01-13 19:00 | NUR ---
RECEIVED REPORT FROM NURSE WILHELM, PATIENT RESTING IN BED WITH EYES CLOSED, NO DISCOMFORTS NOTED AT THIS TIME, WITH EVEN UNLABORED BREATHING CALL LIGHT AT REACH.
[2019-01-13 19:55] VITALS: BP 143/88
--- NOTE | 2019-01-13 21:30 | NUR ---
PATIENT ALERT AND ORIENTED X 3 ABLE TO MAKE NEEDS KNOWN, C/O OF PAIN ON LEFT LATERAL NECK PS 7/10 WILL MEDICATE, REMAINS ON TELE ST103, LAST BM 01/12, WITH AN ONGOING IV OF NS @ 100CC/HR INFUSING WELL ON RAC, PATIENT PUT BACK ON CONTACT PRECAUTION R/T MRSA ON THE BLOOD, BS 190 DUE COVERAGE GIVEN, CALL LIGHT WITHIN REACH.
[2019-01-13 23:39] VITALS: BP 146/85
--- NOTE | 2019-01-14 01:00 | NUR ---
PATIENT RESTING IN BED, EYES CLOSED, NO DISCOMFORTS NOTED AT THIS TIME, EVEN UNLABORED BREATHING CALL LIGHT AT REACH.
[2019-01-14 03:58] VITALS: BP 148/90
--- NOTE | 2019-01-14 04:59 | NUR ---
PATIENT IN BED, CURRENTLY WATCHING TV, DENIES PAIN AND DISCOMFORT, TEMP 99.9, GIVEN PRN TYLENOL EARLIER AND WASH CLOTH.CALL LIGHT AT REACH.
[2019-01-14 05:26] LABS: HEMATOCRIT 33.3 % (39.0-50.0); HEMOGLOBIN 10.7 g/dl (14.0-18.0); IMMATURE GRANULOCYTES 0.5 % (0.0-5.0); MEAN CELL VOLUME 90.7 fL CALC (80.0-100.0); MEAN CORPUSCULAR HGB 29.2 pG CALC (26.0-32.0); MEAN CORPUSCULAR HGB CONC 32.1 g/L CALC (32.0-36.0); NEUT# 6.03 thou/uL (1.82-7.42); RED BLOOD COUNT 3.67 mill/uL (4.70-6.10); RED CELL DISTRI WIDTH 12.4 % (11.5-15.5)
[2019-01-14 05:39] LABS: ALKALINE PHOSPHATASE 109 u/l (38-126); AMYLASE 46 u/l (30-110); ANION GAP 10 (6-22 (CALC)); BUN 11 mg/dL (9-20); BUN/CREATININE RATIO 16 (12-20 (CALC)); CARBON DIOXIDE 32 mmol/l (22-30); CHLORIDE 100 mmol/l (95-108); CREATININE 0.7 mg/dL (0.7-1.3); GFR > 60 ML/MIN (>=60 (CALC)); GFR FOR AFR.AMER. > 60 ML/MIN (>=60 (CALC)); LIPASE 85 u/l (23-300); MAGNESIUM 2.1 mg/dL (1.6-2.3); POTASSIUM 3.9 mmol/l (3.5-5.1); SODIUM 138 mmol/l (137-146)
[2019-01-14 05:42] LABS: ALBUMIN 3.1 g/dL (3.2-5.0); BILIRUBIN, TOTAL 0.5 mg/dL (0.0-1.4); SGOT/AST 74 u/l (17-59); TOTAL PROTEIN 5.7 g/dL (6.3-8.2)
--- NOTE | 2019-01-14 07:15 | NUR ---
REPORT RECEIVED FROM GRETTA CONNER;PT RESTING IN SEMI FOWLERS POSITION WITH X1 GUARD AT BEDSIDE AND RIGHT FOOT SHACKLED TO BED;INTRODUCED SELF TO PT AND POC DISCUSSED;RESPIRATIONS EVEN AND UNLABORED ON RA;TELE MONITORING IN PLACE;IV FLUIDS INFUSING WELL TO RAC;PT DENIES ANY CURRENT NEEDS AT THIS TIME;ACCUCHECK 84, NO COVERAGE NEEDED;ENCOURAGED PT TO CALL FOR ASSISTANCE IF NEEDED;BED IN THE IN LOWEST POSITION AND CALL LIGHT IN REACH;WILL CONTINUE TO MONITOR
--- NOTE | 2019-01-14 08:10 | NUR ---
PT RESTING IN SEMI FOWLERS POSITION WITH 1 GUARD AT BEDSIDE AND RIGHT LEG SHACKLED TO THE BED;VS OBTAINED AND ASSESSMENT COMPLETED;PT REPORTS LEFT SIDED NECK AND CHEST PAIN RATING 8/10 ON THE PAIN SCALE AND REQUESTS PAIN MEDICATION,PT MEDICATED WITH PRN DILAUDID 1MG IVP AT THIS TIME;RESPIRATIONS EVEN AND UNLABORED ON RA,CLEAR LUNG SOUNDS;ABDOMEN SOFT ON PALPATION AND ACTIVE IN ALL 4 QUADRANTS;STRONG PEDAL PULSES;SKIN INTACT:#22G TO RAC INFUSING NS @ 100ML/HR,SITE APPEARS HEALTHY;TELE MONITORING IN PLACE;CONTACT PRECAUTIONS IN PLACE FOR MRSA;PT DENIES ANY ADDITIONAL NEEDS AT THIS TIME AND IS ENCOURAGED TO CALL FOR ASSISTANCE IF NEEDED;CALL LIGHT IN REACH;WILL CONTINUE TO MONITOR
[2019-01-14 08:12] VITALS: BP 149/98
--- NOTE | 2019-01-14 09:25 | NUR ---
PT TRANSPORTED TO [facility] VIA WHEELCHAIR IN STABLE CONDITION ACCOMPANIED BY X1 GUARD AND BETHANY GAYTAN.
--- NOTE | 2019-01-14 10:00 | NUR ---
PT TRANSPORTED BACK TO MED/SURG ROOM 268 IN STABLE CONDITION VIA WHEELCHAIR ACCOMPANIED BY 1 GUARD AND BETHANY COBIAN.
[2019-01-14 11:28] VITALS: BP 160/97
--- NOTE | 2019-01-14 11:30 | NUR ---
PT RESTING IN SEMI FOWLERS POSITION WITH 1 GUARD AT BEDSIDE;RESPIRATIONS EVEN AND UNLABORED ON RA;PT DENIES ANY CURRENT PAIN OR NEEDS;TELE MONITORING IN PLACE;ACCUCHECK 169, PT COVERED WITH SLIDING SCALE NOVOLOG PER ORDER;ASSESSMENT REMAINS UNCHANGED AT THIS TIME;ENCOURAGED PT TO CALL FOR ASSISTANCE IF NEEDED;CALL LIGHT IN REACH;WILL CONTINUE TO MONITOR
--- NOTE | 2019-01-14 11:52 | NUR ---
AT BEDSIDE DISCUSSING POC WITH PT AND ONE GUARD INCLUDING DISCHARGE BACK TO [facility] WITH DAILY IV THERAPY.
--- NOTE | 2019-01-14 13:50 | NUR ---
PT TRANSPORTED TO [facility] VIA WHEELCHAIR IN STABLE CONDITION FOR PICCLINE INSERTION ACCOMPANIED BY 1 GUARD AND BETHANY COBIAN.
--- NOTE | 2019-01-14 14:17 | NUR ---
PT RETURNED TO MED/SURG ROOM 268 IN STABLE CONDITION ACCOMPANIED BY 1 GUARD AND BETHANY COBIAN.
[2019-01-14 14:30] VITALS: BP 160/98
[2019-01-14] MEDS ORDERED: DOXYCYCL HYC100 MG IV (14:43)
--- NOTE | 2019-01-14 15:10 | NUR ---
PT RESTING IN BED WITH ONE GUARD AT BEDSIDE;RESPIRATIONS EVEN AND UNLABORED ON RA;PT REPORTS LEFT SIDED NECK AND CHEST PAIN RATING 7/10 ON THE PAIN SCALE AND REQUESTS PAIN MEDICATION;PT MEDICATED WITH PRN DILAUDID 1MG IVP AT THIS TIME;DOUBLE LUMEN POWER PICC FLUSHED AND PATENT WITH GOOD BLOOD RETURN NOTED;INSERTION SITE MEASURES 29CM IN CIRCUMFERENCE;TELE MONITORING IN PLACE;PT DENIES ANY ADDITIONAL NEEDS AT THIS TIME;WILL CONTINUE TO MONITOR
[2019-01-14 16:56] VITALS: BP 148/90
--- NOTE | 2019-01-14 19:33 | NUR ---
ASSESSMENT COMPLETED. NO RESP. DISTRESS NOTED. MANUAL B/P OBTAINED AND IS 158/92 AND TEMP 100.3. LOPRESSOR AND TYLENOL GIVEN ALONG WITH PRN DILAUDID FOR PT'S C/O PAIN 01/29; WILL REASSESS. PO FLUISD OFFERED. URINAL EMPTIED. CALL LIGHT IS IN REACH. WILL CONTINUE TO MONITOR.
--- NOTE | 2019-01-14 21:20 | NUR ---
REASSESSED TEMP AND NOW 98.5; REQUESTS PRN SONATA TO ASSIST WITH SLEEP; MEDICATED WITH THIS ALONG WITH SCHED INSULIN FOR BS; SNACK PROVIDED. GUARD REMAINS AT BEDSIDE. CALL LIGHT IS IN REACH.
--- NOTE | 2019-01-14 23:30 | NUR ---
PT. RESTING IN BED WITH NO DISTRESS NOTED. SNACK PROVIDED PER REQUEST; SCHED MED GIVEN. DENIES FURTHER NEEDS. URINAL EMTPIED. GUARD AT BEDSIDE.
[2019-01-15 00:34] VITALS: BP 142/89
--- NOTE | 2019-01-15 01:45 | NUR ---
PT. RESTING IN BED WITH NO DISTRESS NOTED; DENIES NEEDS/PAIN. PICC LINE INTACT AND SL, FLUSHED AT THIS TIME.
[2019-01-15 03:51] VITALS: BP 128/81
--- NOTE | 2019-01-15 04:13 | NUR ---
AM LABS DRAWN VIA PICC LINE AND FLUSHED PER PROTOCAL. C/O NECK PAIN 03/01, MEDICATED WITH ORDERED DILAUDID; WILL REASSESS.
--- NOTE | 2019-01-15 04:45 | NUR ---
PT. SLIGHTLY SWEATY AND IS ASYMPTOMATIC WITH BS OF 41; SNACKS PROVIDED; WILL REASSESS.
--- NOTE | 2019-01-15 05:38 | NUR ---
BS NOW UP TO 74; NO DISTRESS NOTED.
[2019-01-15 05:49] LABS: HEMATOCRIT 33.1 % (39.0-50.0); HEMOGLOBIN 10.6 g/dl (14.0-18.0); IMMATURE GRANULOCYTES 0.3 % (0.0-5.0); MEAN CELL VOLUME 90.4 fL CALC (80.0-100.0); NEUT# 4.81 thou/uL (1.82-7.42); RED BLOOD COUNT 3.66 mill/uL (4.70-6.10); RED CELL DISTRI WIDTH 12.2 % (11.5-15.5)
[2019-01-15 06:23] LABS: ALBUMIN 3.1 g/dL (3.2-5.0); ALKALINE PHOSPHATASE 134 u/l (38-126); ANION GAP 12 (6-22 (CALC)); BILIRUBIN, TOTAL 0.4 mg/dL (0.0-1.4); BUN 10 mg/dL (9-20); BUN/CREATININE RATIO 16 (12-20 (CALC)); CARBON DIOXIDE 31 mmol/l (22-30); CHLORIDE 102 mmol/l (95-108); CREATININE 0.7 mg/dL (0.7-1.3); GFR > 60 ML/MIN (>=60 (CALC)); GFR FOR AFR.AMER. > 60 ML/MIN (>=60 (CALC)); MAGNESIUM 2.3 mg/dL (1.6-2.3); POTASSIUM 3.9 mmol/l (3.5-5.1); SGOT/AST 68 u/l (17-59); SODIUM 142 mmol/l (137-146); TOTAL PROTEIN 5.7 g/dL (6.3-8.2)
--- NOTE | 2019-01-15 06:42 | NUR ---
NOTIFIED DR. LAMBERT OF BS BEING 35 IN LAB THIS AM DRAWN AT 0410 WELL NOW BS IS UP TO 78; NO NEW ORDERS RECEIVED.
--- NOTE | 2019-01-15 07:05 | NUR ---
REPORT RECEIVED FROM GRETTA LAMBERT;PT RESTING IN BED WITH 1 GUARD AT BEDSIDE AND RIGHT LEG SHACKLED TO BED;INTRODUCED SELF TO PT AND POC DISCUSSED;RESPIRATIONS APPEAR EVEN AND UNLABORED ON RA;PT DENIES ANY CURRENT NEEDS;TELE MONITORING IN PLACE;CONTACT PRECAUTIONS REMAIN IN PLACE FOR MRSA;ENCOURAGED PT TO CALL FOR ASSISTANCE IF NEEDED;BED IN THE LOWEST POSITION WITH CALL LIGHT IN REACH;WILL CONTINUE TO MONITOR
[2019-01-15 08:23] VITALS: BP 145/96
--- NOTE | 2019-01-15 08:30 | NUR ---
PT RESTING IN SEMI FOWLERS POSITION WITH X1 GUARD AT BEDSIDE AND RIGHT FOOT SHACKLED TO THE BED, A&O X4;VS OBTAINED AND ASSESSMENT COMPLETED;PT REPORTS LEFT SIDED NECK PAIN RATING 8/10 ON THE PAIN SCALE AND REQUESTS PAIN MEDICATION,PT MEDICATED WITH PRN DILAUDID 1MG IVP;RESPIRATIONS EVEN AND UNLABORED ON RA,CLEAR LUNG SOUNDS;ABDOMEN SOFT ON PALPATION AND ACTIVE IN ALL 4 QUADRANTS;STRONG PEDAL PULSES;SKIN INTACT;BEATRIZ POWER PICC DOUBLE LUMEN FLUSHED AND PATENT WITH GOOD BLOOD RETURN NOTED;ABX ADMINISTERED AT THIS TIME;BEATRIZ CIRCUMFERENCE MEASURES AT 30CM;TELE MONITORING IN PLACE;ACCUCHECK 92;PT DENIES ANY ADDITIONAL NEEDS AT THIS TIME AND IS ENCOURAGED TO CALL FOR ASSISTANCE IF NEEDED;CALL LIGHT IN REACH;WILL CONTINUE TO MONITOR
[2019-01-15 11:15] VITALS: BP 137/89
--- NOTE | 2019-01-15 11:20 | NUR ---
ALL DISCHARGE INSTRUCTIONS AND RX FOR DOXY PROVIDED TO [facility] PATTERN STORAGE CLERK.PT VERBALIZES UNDERSTANDING OF D[place]. BEATRIZ PICCLINE IN PLACE.WHEELCAIR TO BE PROVIDED.
--- NOTE | 2019-01-15 11:25 | NUR ---
Discharge instructions given. Patient verbalizes understanding of same. [facility] All belongings sent with pt. Pt transported to [facility] for discharge via wheelchair accompanied by melchor Blunt and guard.
== END 2019-01-15 11:24 | DRG 872 ==
LOC: ED 13:20 → ED-I 15:46 → ED 16:22 → MS2 16:23
PROVIDERS: Family Medicine; Internal Medicine Nephrology; Nurse Practitioner Family; ADMIT Internal Medicine; ATTEND Internal Medicine
PROC: 009U3ZX Drainage of Spinal Canal, Percutaneous Approach, Diagnostic (ICD-10-PCS; principal; 2019-01-11)
PROC: 02HV33Z Insertion of Infusion Device into Superior Vena Cava, Percutaneous Approach (ICD-10-PCS; 2019-01-14)
PROC: B518ZZA Fluoroscopy of Superior Vena Cava, Guidance (ICD-10-PCS; 2019-01-14)
DX: A41.02 Sepsis due to Methicillin resistant Staphylococcus aureus (principal); R07.89 Other chest pain; I10 Essential (primary) hypertension; E11.65 Type 2 diabetes mellitus with hyperglycemia; M48.02 Spinal stenosis, cervical region; Z68.23 Body mass index [BMI] 23.0-23.9, adult; Z79.4 Long term (current) use of insulin
CPT/HCPCS: A9579; G0378; J0692; J3370; Q9967

== ENCOUNTER 2024-02-10 16:34 | Emergency (ER) | payer MEDICARE ==
[~2024-02-10] VITALS: Ht 172.7 cm; Wt 75.0 kg
[~2024-02-10 16:34] MED LIST changes: +DOXYCYCL HYC100 MG IV; +HUMULIN R SC; +METHOCARBAMOL500 MG PO; +NAPROXEN500 MG PO; +NOVOLIN N100 UNIT/M SC; +NOVOLIN R100 UNIT/M SC; +NOVOLOG100 UNIT SC; +TRAMADOL HYDROC50 M1 PO
[2024-02-10] MEDS ORDERED: SODIUM CHLORIDE 0.9% 1,000 ML IV ONE (16:55)
[2024-02-10] MEDS ORDERED: MORPHINE SULFATE 4 MG/ML VIAL IV ONE (16:55)
[2024-02-10] MEDS ORDERED: PIPERACILLIN Sodium-Tazobactam 3.375 GM in SODIUM CHLORIDE 0.9% 100 ML IV ONE (16:55)
[2024-02-10] MEDS ORDERED: ONDANSETRON HCl 4 MG/2 ML SDV IV ONE (16:55)
[2024-02-10] MEDS ORDERED: VANCOMYCIN HCL 1 GM in SODIUM CHLORIDE 0.9% 250 ML IV ONE (16:55)
[2024-02-10 17:34] LABS: BASO% 0.2 % (0-3); EOS% 1.7 % (0-8); HEMATOCRIT 33.5 % (39.0-50.0); IMMATURE GRANULOCYTES 0.1 % (0.0-5.0); LYMPH% 14.2 % (15-41); MEAN CELL VOLUME 82.9 fL CALC (80.0-100.0); MEAN CORPUSCULAR HGB 24.8 pG CALC (26.0-32.0); MEAN CORPUSCULAR HGB CONC 29.9 g/dL CAL (32.0-36.0); MONO% 10.2 % (2-13); NEUT# 6.54 thou/uL (1.82-7.42); NEUT% 73.6 % (42-76); RED BLOOD COUNT 4.04 mill/uL (4.70-6.10); RED CELL DISTRI WIDTH 14.3 % (11.5-15.5)
[2024-02-10 17:48] LABS: ALBUMIN 3.3 g/dL (3.2-5.0); BILIRUBIN, TOTAL 0.4 mg/dL (0.2-1.3); CREATININE 0.9 mg/dL (0.7-1.3); POTASSIUM 4.5 mmol/l (3.5-5.1); TOTAL PROTEIN 6.7 g/dL (6.3-8.2)
[2024-02-10 19:30] VITALS: BP 130/78
[2024-02-10] MEDS ORDERED: BACTRIM DS1 TAB PO (19:41)
[2024-02-10] MEDS ORDERED: SULFAMETHOXAZOLE W/TRIMETHOPRI 1 COMBO TAB PO ONE (19:45)
--- NOTE | 2024-02-12 10:20 | NUR ---
Preliminary blood culture results growing gram positive cocci in 1 of 4 bottles. Called results to PCP, Dr Brown who saw patient this morning. Will send final results when available.
== END 2024-02-10 19:35 | disposition left against medical advice (07) ==
LOC: ED 16:34
PROVIDERS: Family Medicine
DX: L02.416 Cutaneous abscess of left lower limb (principal); B95.62 Methicillin resistant Staphylococcus aureus infection as the cause of diseases classified elsewhere; I10 Essential (primary) hypertension; E11.9 Type 2 diabetes mellitus without complications; Z79.4 Long term (current) use of insulin; Z96.642 Presence of left artificial hip joint; Z53.29 Procedure and treatment not carried out because of patient's decision for other reasons
CPT/HCPCS: Q9967

== ENCOUNTER 2024-02-15 12:47 | Emergency (ER) | payer MEDICARE ==
[~2024-02-15] VITALS: Ht 172.7 cm; Wt 88.4 kg
[2024-02-15] VITALS (26 sets, daily range): BP systolic 107–132; BP diastolic 70–85
[2024-02-15] MEDS ORDERED: ASPIRIN 81 MG/TAB PO ONE (12:50)
[2024-02-15 13:20] LABS: BASO% 0.1 % (0-3); EOS% 4.3 % (0-8); HEMATOCRIT 34.8 % (39.0-50.0); HEMOGLOBIN 10.8 g/dl (14.0-18.0); IMMATURE GRANULOCYTES 0.2 % (0.0-5.0); LYMPH% 18.4 % (15-41); MEAN CELL VOLUME 81.9 fL CALC (80.0-100.0); MEAN CORPUSCULAR HGB 25.4 pG CALC (26.0-32.0); MONO% 6.7 % (2-13); NEUT# 6.15 thou/uL (1.82-7.42); NEUT% 70.3 % (42-76); RED BLOOD COUNT 4.25 mill/uL (4.70-6.10); RED CELL DISTRI WIDTH 14.4 % (11.5-15.5)
[2024-02-15 13:36] LABS: ALBUMIN 3.8 g/dL (3.2-5.0); ALKALINE PHOSPHATASE 96 u/l (38-126); ANION GAP 9 (6-22 (CALC)); BILIRUBIN, TOTAL 0.5 mg/dL (0.2-1.3); BUN 13 mg/dL (8-23); BUN/CREATININE RATIO 12 (12-20 (CALC)); CARBON DIOXIDE 27 mmol/l (22-30); CHLORIDE 102 mmol/l (95-108); CREATININE 1.1 mg/dL (0.7-1.3); ESTIMATED GFR 76 ML/MIN (>=90 (CALC)); POTASSIUM 4.7 mmol/l (3.5-5.1); SODIUM 134 mmol/l (137-146)
[2024-02-15 13:48] LABS: SGOT/AST 44 u/l (19-48)
[2024-02-15] MEDS ORDERED: VANCOMYCIN HCL 1 GM in SODIUM CHLORIDE 0.9% 250 ML IV ONE (14:20)
[2024-02-15] MEDS ORDERED: PIPERACILLIN Sodium-Tazobactam 3.375 GM in SODIUM CHLORIDE 0.9% 100 ML IV ONE (14:20)
== END 2024-02-15 18:54 | disposition short-term general hospital (02) ==
LOC: ED 12:47
PROVIDERS: Family Medicine
DX: L02.416 Cutaneous abscess of left lower limb (principal); R07.9 Chest pain, unspecified; L03.116 Cellulitis of left lower limb; I10 Essential (primary) hypertension; E11.9 Type 2 diabetes mellitus without complications; Z79.4 Long term (current) use of insulin

== ENCOUNTER 2024-03-18 01:35 | Emergency (ER) | payer OTHER ==
[2024-03-18] VITALS (18 sets, daily range): BP systolic 112–145; BP diastolic 72–85
[~2024-03-18] VITALS: Ht 172.7 cm; Wt 80.0 kg
[2024-03-18] MEDS ORDERED: VANCOMYCIN HCL 1 GM in SODIUM CHLORIDE 0.9% 250 ML IV ONE (01:55)
[2024-03-18] MEDS ORDERED: AMPICILLIN & SULBACTAM SODIUM 3 GM in SODIUM CHLORIDE 0.9% 100 ML IV ONE (01:55)
[2024-03-18 02:26] LABS: BASO% 0.4 % (0-3); EOS% 3.9 % (0-8); HEMATOCRIT 30.9 % (39.0-50.0); HEMOGLOBIN 9.6 g/dl (14.0-18.0); IMMATURE GRANULOCYTES 0.2 % (0.0-5.0); LYMPH% 18.7 % (15-41); MEAN CELL VOLUME 80.9 fL CALC (80.0-100.0); MEAN CORPUSCULAR HGB 25.1 pG CALC (26.0-32.0); MEAN CORPUSCULAR HGB CONC 31.1 g/dL CAL (32.0-36.0); MONO% 8.9 % (2-13); NEUT# 5.52 thou/uL (1.82-7.42); NEUT% 67.9 % (42-76); RED BLOOD COUNT 3.82 mill/uL (4.70-6.10); RED CELL DISTRI WIDTH 15.1 % (11.5-15.5)
[2024-03-18 02:41] LABS: ALBUMIN 3.5 g/dL (3.2-5.0); BILIRUBIN, TOTAL 0.4 mg/dL (0.2-1.3); POTASSIUM 3.9 mmol/l (3.5-5.1); TOTAL PROTEIN 7.1 g/dL (6.3-8.2)
[2024-03-18 02:52] LABS: C-REACTIVE PROTEIN 14.9 mg/dL (0-0.9)
== END 2024-03-18 06:54 | disposition short-term general hospital (02) | DRG 863 ==
LOC: ED 01:35
PROVIDERS: Emergency Medicine
DX: T81.41XA Infection following a procedure, superficial incisional surgical site, initial encounter (principal); L02.416 Cutaneous abscess of left lower limb; I10 Essential (primary) hypertension; E11.9 Type 2 diabetes mellitus without complications; Y83.1 Surgical operation with implant of artificial internal device as the cause of abnormal reaction of the patient, or of later complication, without mention of misadventure at the time of the procedure; Z96.642 Presence of left artificial hip joint; Z79.4 Long term (current) use of insulin
CPT/HCPCS: Q9967

== ENCOUNTER 2024-04-15 14:03 | Emergency (ER) | payer OTHER ==
[~2024-04-15] VITALS: Ht 172.7 cm; Wt 90.0 kg
[2024-04-15] MEDS ORDERED: HYDROcodone 5 MG/Acetaminophen 325 MG/COMBO PO ONE (14:45)
[2024-04-15 15:00] VITALS: BP 142/82
[2024-04-15 15:16] VITALS: BP 157/136
[2024-04-15] MEDS ORDERED: TRAMADOL HYDROC50 M1 PO (15:38)
[2024-04-15 15:45] VITALS: BP 160/103
[2024-04-15 15:49] VITALS: BP 160/103
== END 2024-04-15 16:05 | disposition home or self-care (01) | DRG 605 ==
LOC: ED 14:03
DX: S70.02XA Contusion of left hip, initial encounter (principal); I10 Essential (primary) hypertension; E11.9 Type 2 diabetes mellitus without complications; W08.XXXA Fall from other furniture, initial encounter; Z96.642 Presence of left artificial hip joint; Z79.4 Long term (current) use of insulin

== ENCOUNTER 2024-07-17 11:43 | Observation (INO) | payer OTHER ==
[2024-07-17] VITALS (39 sets, daily range): BP systolic 93–139; BP diastolic 62–96
[~2024-07-17] VITALS: Ht 172.7 cm; Wt 84.0 kg
[2024-07-17] MEDS ORDERED: ASPIRIN 81 MG/TAB PO ONE (12:05)
--- NOTE | 2024-07-17 12:19 | NUR ---
PATIENT TO ROOM 5
[2024-07-17 12:45] LABS: BASO% 0.6 % (0-3); EOS% 0.9 % (0-8); HEMATOCRIT 39.5 % (39.0-50.0); HEMOGLOBIN 12.3 g/dl (14.0-18.0); IMMATURE GRANULOCYTES 0.4 % (0.0-5.0); LYMPH% 15.8 % (15-41); MEAN CELL VOLUME 81.6 fL CALC (80.0-100.0); MEAN CORPUSCULAR HGB 25.4 pG CALC (26.0-32.0); MEAN CORPUSCULAR HGB CONC 31.1 g/dL CAL (32.0-36.0); MONO% 14.5 % (2-13); NEUT# 3.64 thou/uL (1.82-7.42); NEUT% 67.8 % (42-76); RED BLOOD COUNT 4.84 mill/uL (4.70-6.10); RED CELL DISTRI WIDTH 14.4 % (11.5-15.5)
[2024-07-17 13:07] LABS: CARBON DIOXIDE 24 mmol/l (22-30)
[2024-07-17 13:21] LABS: MAGNESIUM 1.8 mg/dL (1.6-2.3)
[2024-07-17 13:40] LABS: ALBUMIN 4.2 g/dL (3.2-5.0); ALKALINE PHOSPHATASE 88 u/l (38-126); ANION GAP 15 (6-22 (CALC)); BUN 19 mg/dL (8-23); BUN/CREATININE RATIO 18 (12-20 (CALC)); CHLORIDE 99 mmol/l (95-108); CREATININE 1.1 mg/dL (0.7-1.3); ESTIMATED GFR 76 ML/MIN (>=90 (CALC)); POTASSIUM 4.1 mmol/l (3.5-5.1); SGOT/AST 26 u/l (19-48); SODIUM 134 mmol/l (137-146); TOTAL PROTEIN 7.7 g/dL (6.3-8.2)
[2024-07-17 13:42] LABS: BILIRUBIN, TOTAL 0.7 mg/dL (0.2-1.3)
--- NOTE | 2024-07-17 14:17 | NUR ---
Reassessment of patient completed. No distress noted.
[2024-07-17] MEDS ORDERED: MAGNESIUM HYDROXIDE 30 ML UDC PO PRN (14:40)
[2024-07-17] MEDS ORDERED: ACETAMINOPHEN 325 MG/TAB PO PRN (14:40)
[2024-07-17 15:14] LABS: URINE BLOOD DIPSTICK Negative (NEGATIVE); URINE GLUCOSE - DIPSTICK 500 mg/dL (NEGATIVE); URINE KETONE 80 mg/dL (NEGATIVE); URINE LEUK ESTERASE Negative (NEGATIVE); URINE NITRITE - DIPSTICK Negative (Negative); URINE PROTEIN - DIPSTICK 100 mg/dL (NEG-TRACE); URINE SPECIFIC GRAVITY >=1.030; URINE UROBILINOGEN - DIPSTICK 0.2 E.U./dL (0.2)
[2024-07-17 15:19] LABS: URINE COLOR Yellow
[2024-07-17 15:25] LABS: URINE WBC 0-2 WBC/hpf (0-5)
[2024-07-17 15:26] LABS: URINE COARSE GRANULAR CAST FEW lpf; URINE MUCUS FEW hpf (NONE-FEW)
[2024-07-17 15:27] LABS: URINE SQUAMOUS EPITHELIAL CELL FEW EPI/hpf (0-FEW)
[2024-07-17] MEDS ORDERED: LISINOPRIL5 MG PO (15:31)
[2024-07-17] MEDS ORDERED: MELOXICAM15 MG PO (15:35)
[2024-07-17] MEDS ORDERED: MOXIFLOXACIN HC0.5 % (15:35)
[2024-07-17] MEDS ORDERED: PROSCAR5 MG PO (16:17)
[2024-07-17] MEDS ORDERED: NOVOLOG100 UNIT SC (16:18)
[2024-07-17] MEDS ORDERED: BASAGLAR K100 UNIT/M SC (16:19)
[2024-07-17] MEDS ORDERED: ATORVASTATIN CA10 MG PO (16:19)
[2024-07-17] MEDS ORDERED: TAMSULOSIN0.4 MG PO (16:20)
[2024-07-17] MEDS ORDERED: INSULIN LISPRO 100 UNITS/ML ML SC SCH (17:09)
--- NOTE | 2024-07-17 17:53 | NUR ---
PATIENT WITH 1 FAMILY MEMBER BEDSIDE, RESTING WITH EYES CLOSED DENIES ANY NEEDS CURRENTLY
[2024-07-17] MEDS ORDERED: PANTOPRAZOLE SODIUM Sesquihydr 40 MG/TAB PO SCH (18:00)
--- NOTE | 2024-07-17 19:07 | NUR ---
REPORT RECEIVED FROM GRETTA CANNON AND CARE RESUMED BY THIS NURSE AT THIS TIME. PT AWAITING TRANSPORT TO MED SURG. CALL LIGHT WITHIN REACH.
--- NOTE | 2024-07-17 19:08 | NUR ---
TRANSITION OF CARE, NURSE TO NURSE REPORT COMPLETED WITH [place] STARK
--- NOTE | 2024-07-17 19:25 | NUR ---
PATIENT CARE REPORT CALL TO MED/SURG NURSE ESSENCE
--- NOTE | 2024-07-17 20:24 | NUR ---
PT RESTING IN RM AWAITING ADMISSION AT THIS TIME. CALL LIGHT WITHIN REACH AND PT HAS NO NEEDS OR CONCERNS.
[2024-07-17] MEDS ORDERED: LISINOPRIL 5 MG/TAB PO SCH (21:00)
[2024-07-17] MEDS ORDERED: ENOXAPARIN SODIUM 40 MG/0.4 ML SYR SC SCH (21:00)
--- NOTE | 2024-07-17 21:29 | NUR ---
PT TRANSPORTED TO [facility] VIA WHEELCHAIR BY NURSING CONTACT CENTER MANAGER AT THIS TIME.
--- NOTE | 2024-07-17 21:35 | NUR ---
PT ARRIVED TO [facility] VIA WHEELCHAIR. PT IS ABLE TO AMBULATE WITHOUT ASSISTANCE BUT STATED HE HAD MULTIPLE FALLS IN THE LAST [address] F[address] PRECAUTIONS IN PLACE. CALL LIGHT WITHIN REACH. BED ALARM ON.
--- NOTE | 2024-07-17 22:00 | NUR ---
PT RESTING NO DISTRESS NOTED. NIGHT TIME MEDICATION GIVEN. ASSESSMENT DONE. IV FLUSHED WORKING PROPERLY SL. SKIN INTACT NO EDEMA NOTED. CALL LIGHT WITHIN REACH. PLAN OF CARE ONGOING.
[2024-07-18 04:06] VITALS: BP 97/56
[2024-07-18 05:40] LABS: BASO% 0.7 % (0-3); EOS% 0.2 % (0-8); HEMOGLOBIN 11.3 g/dl (14.0-18.0); IMMATURE GRANULOCYTES 0.2 % (0.0-5.0); LYMPH% 26.7 % (15-41); MEAN CELL VOLUME 80.5 fL CALC (80.0-100.0); MEAN CORPUSCULAR HGB 25.3 pG CALC (26.0-32.0); MEAN CORPUSCULAR HGB CONC 31.4 g/dL CAL (32.0-36.0); MONO% 16.4 % (2-13); NEUT# 2.42 thou/uL (1.82-7.42); NEUT% 55.8 % (42-76); RED BLOOD COUNT 4.47 mill/uL (4.70-6.10); RED CELL DISTRI WIDTH 14.6 % (11.5-15.5)
[2024-07-18 05:41] LABS: BILIRUBIN, TOTAL 0.6 mg/dL (0.2-1.3); CREATININE 0.9 mg/dL (0.7-1.3); MAGNESIUM 1.7 mg/dL (1.6-2.3); TOTAL PROTEIN 6.2 g/dL (6.3-8.2)
[2024-07-18 05:46] LABS: ALBUMIN 3.2 g/dL (3.2-5.0)
[2024-07-18 06:44] VITALS: BP 103/65
[2024-07-18] MEDS ORDERED: TAMSULOSIN HCL 0.4 MG CAP PO SCH (09:00)
[2024-07-18] MEDS ORDERED: ATORVASTATIN CALCIUM 10 MG/TAB PO SCH (09:00)
[2024-07-18] MEDS ORDERED: ASPIRIN EC 81 MG/TAB PO SCH ×2 (09:00)
[2024-07-18 10:05] VITALS: BP 108/70
--- NOTE | 2024-07-18 11:01 | NUR ---
Patient alert and oriented, resting in bed family at bedisde, vitals stable, no complains of pain, bed in the lowest position, needs assessed.
--- NOTE | 2024-07-24 10:29 | NUR ---
Discharge follow up call completed 07/24/24. states patient began having chest pain again last night and again this morning. She states patient was resisting the idea of returning to the hospital but she was going to call EMS if the pain persists. No medication was prescribed at discharge and patient has not made a follow up appointment with hsi PCP uet. Encouraged patient to return to [facility] ED if necessary or to contact PCP for instructions. again states she would call EMS if patient continued to refuse to return to hospital. No other needs or concerns verbalized at this time.
== END 2024-07-18 12:58 | disposition home or self-care (01) | DRG 313 ==
LOC: ED 11:43 → ED-I 14:10 → ED 14:33 → MS2 14:34
PROVIDERS: Family Medicine; Nurse Practitioner; Nurse Practitioner Family; ADMIT Internal Medicine; ATTEND Internal Medicine
DX: R07.9 Chest pain, unspecified (principal); R25.1 Tremor, unspecified; E11.65 Type 2 diabetes mellitus with hyperglycemia; I10 Essential (primary) hypertension; F14.10 Cocaine abuse, uncomplicated; Z79.4 Long term (current) use of insulin; Z86.73 Personal history of transient ischemic attack (TIA), and cerebral infarction without residual deficits
CPT/HCPCS: G0378; J1650; J1815

== ENCOUNTER 2024-07-24 14:45 | Inpatient (IN) | payer OTHER ==
[~2024-07-24] VITALS: Ht 172.7 cm; Wt 77.4 kg
[2024-07-24] VITALS (21 sets, daily range): BP systolic 110–140; BP diastolic 66–88
[~2024-07-24 14:45] MED LIST changes: +ATORVASTATIN CA10 MG PO; +BASAGLAR K100 UNIT/M SC; +LISINOPRIL5 MG PO; +MELOXICAM15 MG PO; +MOXIFLOXACIN HC0.5 %; +PROSCAR5 MG PO; +TAMSULOSIN0.4 MG PO
[2024-07-24] MEDS ORDERED: ONDANSETRON HCl 4 MG/2 ML SDV IV ONE (14:55)
[2024-07-24] MEDS ORDERED: SODIUM CHLORIDE 0.9% 1,000 ML IV ONE ×3 (14:55→18:05)
--- NOTE | 2024-07-24 15:03 | NUR ---
PT ARRIVED VIA EMS.
[2024-07-24] MEDS ORDERED: INSULIN REGULAR (HUMAN) 100 UNIT/ML INJ IV ONE (15:30)
[2024-07-24] MEDS ORDERED: INSULIN REGULAR (HUMAN) IN SOD 100 ML IV ONE (15:30)
[2024-07-24 15:50] LABS: URINE BILIRUBIN - DIPSTICK Negative (NEGATIVE); URINE BLOOD DIPSTICK Small (NEGATIVE); URINE GLUCOSE - DIPSTICK 500 mg/dL (NEGATIVE); URINE KETONE >=160 mg/dL (NEGATIVE); URINE LEUK ESTERASE Negative (NEGATIVE); URINE NITRITE - DIPSTICK Negative (Negative); URINE PROTEIN - DIPSTICK 30 mg/dL (NEG-TRACE); URINE UROBILINOGEN - DIPSTICK 0.2 E.U./dL (0.2)
[2024-07-24 15:51] LABS: URINE COLOR Straw
[2024-07-24 15:54] LABS: BASO% 0.1 % (0-3); HEMATOCRIT 46.1 % (39.0-50.0); HEMOGLOBIN 13.4 g/dl (14.0-18.0); IMMATURE GRANULOCYTES 0.2 % (0.0-5.0); LYMPH% 10.8 % (15-41); MEAN CELL VOLUME 84.1 fL CALC (80.0-100.0); MEAN CORPUSCULAR HGB 24.5 pG CALC (26.0-32.0); MEAN CORPUSCULAR HGB CONC 29.1 g/dL CAL (32.0-36.0); MONO% 5.4 % (2-13); NEUT# 8.47 thou/uL (1.82-7.42); NEUT% 83.5 % (42-76); RED BLOOD COUNT 5.48 mill/uL (4.70-6.10); RED CELL DISTRI WIDTH 14.4 % (11.5-15.5)
[2024-07-24 15:59] LABS: URINE RBC 0-2 RBC/hpf (0-5); URINE SQUAMOUS EPITHELIAL CELL RARE EPI/hpf (0-FEW)
--- NOTE | 2024-07-24 17:00 | NUR ---
REPEAT BLOOD GLUCOSE 457, INSULIN GTT CONTINUES AT 5 UNITS/HR
[2024-07-24 17:07] LABS: BILIRUBIN, TOTAL 0.5 mg/dL (0.2-1.3); BUN 30 mg/dL (8-23); BUN/CREATININE RATIO 22 (12-20 (CALC)); CHLORIDE 108 mmol/l (95-108); CREATININE 1.3 mg/dL (0.7-1.3); ESTIMATED GFR 63 ML/MIN (>=90 (CALC)); SGOT/AST 21 u/l (19-48)
[2024-07-24 17:14] LABS: SODIUM 144 mmol/l (137-146)
[2024-07-24 17:15] LABS: ALBUMIN 4.4 g/dL (3.2-5.0); ALKALINE PHOSPHATASE 125 u/l (38-126); ANION GAP 34 (6-22 (CALC)); CARBON DIOXIDE 8 mmol/l (22-30)
--- NOTE | 2024-07-24 18:00 | NUR ---
REPEAT BLOOD SUGAR 407. INSULIN GTT CONTINUES AT 5UNITS/HR
--- NOTE | 2024-07-24 19:00 | NUR ---
RECIEVED PT REPORT FROM NGUYEN GLYNN. PT RUNNING ON INSULIN DRIP AT THIS TIME. PT AWAITING GLUCOSE RECHECK.
--- NOTE | 2024-07-24 19:02 | NUR ---
REPORT TO KAILEE GLYNN
--- NOTE | 2024-07-24 20:23 | NUR ---
PT UPDATED ON POC, PT GLUCOSE RECHECKED. PT GIVEN BEVRAGE UPON REQUEST.
--- NOTE | 2024-07-24 20:54 | NUR ---
CALLED [facility]INO MARIN. NOTIFIED OF PT ADMITION TO [facility], PT IS ON INSULIN DRIP. [facility] MARIN VOICES WILL TRANSFER PT TO ICU INSTEAD.
--- NOTE | 2024-07-24 22:00 | NUR ---
CALLED ICU, GAVE PT REPORT.
--- NOTE | 2024-07-24 22:07 | NUR ---
ABRAM GLYNN. COMMUNICTAED WITH DR. MCCABE VIA TEXT MESSAGE REGARDING ADMISSION ORDERS FOR PT.
--- NOTE | 2024-07-24 23:40 | NUR ---
PT TRANSPORTED TO ICU AT THIS TIME. NURSE AND ADDITIONAL STAFF AT [facility].
--- NOTE | 2024-07-24 23:48 | NUR ---
PT ARRIVED TO ICU AT 2340 FROM ER ON AN INSULIN DRIP AT 4 UNITS/HR. BG CHECKED 271 TO DRIP CHANGED TO 3UNITS/HR. SKIN INTACT NO EDEMA NOTED. PT STATED NOT ABLE TO STAND AT THIS TIME. CALL LIGHT WITHIN REACH. BED ALARM ON.
[2024-07-24] MEDS ORDERED: ONDANSETRON HCl 4 MG/2 ML SDV IV PRN (23:50)
[2024-07-24] MEDS ORDERED: POTASSIUM CHLORIDE 20MEQ 100 ML IV PRN (23:50)
[2024-07-24] MEDS ORDERED: POTASSIUM CHLORIDE IN NACL 1,000 ML IV PRN (23:50)
[2024-07-24] MEDS ORDERED: SODIUM CHLORIDE 0.9% 1,000 ML IV PRN (23:50)
[2024-07-24] MEDS ORDERED: SODIUM CHLORIDE 0.45% 1,000 ML IV PRN (23:50)
[2024-07-24] MEDS ORDERED: MAGNESIUM SULFATE HEPTAHYDRATE 50 ML IV ONE (23:50)
[2024-07-24] MEDS ORDERED: INSULIN REGULAR (HUMAN) IN SOD 100 ML IV PRN (23:50)
[2024-07-24] MEDS ORDERED: DEXTROSE 5% w/NACL 0.45 1,000 ML IV PRN (23:50)
[2024-07-24] MEDS ORDERED: DEXTROSE 50% 50 ML/SYR IV PRN (23:50)
[2024-07-24] MEDS ORDERED: D5 1/2 NaCL W/KCL 20MEQ 1,000 ML IV PRN (23:50)
[2024-07-25] VITALS: BP 131/87
--- NOTE | 2024-07-25 00:03 | NUR ---
pt glucose is 271 @2344. nurse notified.
--- NOTE | 2024-07-25 00:58 | NUR ---
PT REFUSED MRSA SWAB. NURSE EDUCATED PT ON THE IMPORTANCE OF THE TEST. PT STILL REFUSING STATING THAT HE KNOW WHAT HE NEEDS AND THAT HE DOES NOT NEED A MRSA SWAB.
[2024-07-25 01:00] VITALS: BP 120/78
[2024-07-25 01:01] LABS: CREATININE 0.9 mg/dL (0.7-1.3); MAGNESIUM 2.3 mg/dL (1.6-2.3); POTASSIUM 5.1 mmol/l (3.5-5.1)
--- NOTE | 2024-07-25 01:12 | NUR ---
BG 254 MAINTAIN GTT AT 3 UNITS/HR. MAG LEVEL CAME BACK AT 2.3 WILL HOLD MAG REPLACEMENT FOR NOW.
[2024-07-25 02:00] VITALS: BP 129/78
--- NOTE | 2024-07-25 02:10 | NUR ---
PT BG 226 MAINTAIN CURRENT RATE AT 3 UNITS/HR. PT RESTING NO DISTRESS NOTED. ORAL FLUIDS PROVIDED. CALL LIGHT WITHIN REACH. PLAN OF CARE ONGOING.
[2024-07-25 03:00] VITALS: BP 114/82
--- NOTE | 2024-07-25 03:06 | NUR ---
BG 205 MAINTAINE CURRENT RATE 3 UNITS/HR.
--- NOTE | 2024-07-25 04:09 | NUR ---
DECREASED INSULIN GTT TO 2 UNITS/HR DUE TO BG AT 192.
[2024-07-25 05:28] LABS: CREATININE 0.8 mg/dL (0.7-1.3); POTASSIUM 4.3 mmol/l (3.5-5.1)
--- NOTE | 2024-07-25 05:44 | NUR ---
PT FLUIDS CHANGED PER PROTOCOL TO D5%1/2NS WITH 20 MEQ POTASSIUM. AG CLOSED AT 10. CURRENTLY HAVE NO LONG ACTING INSULIN ORDERED WILL MAINTAIN CURRENT INSULIN GTT.
--- NOTE | 2024-07-25 06:07 | NUR ---
BG 165. INFORMED MD OF PT ANION RADHIKA CLOSED. ASKING FOR LONG ACTING INSULIN ORDER.
[2024-07-25] MEDS ORDERED: INSULIN GLARGINE 100 UNITS/ML SC SCH (06:45)
--- NOTE | 2024-07-25 07:26 | NUR ---
RECIEVED REPORT FROM GRETTA ESTRADA. PT IS LYING IN BED WITH EYES CLOSED, INSULIN DRIP AT 2UNITS/HR. MOST RECENT BG 178 @ 0700. ORDERS TO STOP INSULIN DRIP AT 0845. HR 98 NSR, O2 SAT 98% ON ROOM AIR. NO NEEDS AT THIS TIME. PT REFUSING MRSA SWAB AGAIN.
[2024-07-25] MEDS ORDERED: FAMOTIDINE 10MG/ML 2ML SDV IV SCH (09:00)
[2024-07-25] MEDS ORDERED: DEXTROSE 250 ML IV PRN (09:25)
[2024-07-25] MEDS ORDERED: HUMALOG100 UNIT SC (09:45)
[2024-07-25] MEDS ORDERED: ASPIRIN EC 81 MG/TAB PO SCH (10:30)
[2024-07-25] MEDS ORDERED: FINASTERIDE 5 MG/TAB PO SCH (10:30)
[2024-07-25] MEDS ORDERED: INSULIN LISPRO 100 UNITS/ML ML SC SCH (11:30)
--- NOTE | 2024-07-25 12:43 | NUR ---
gave pt discharge ppwk and d/c'ed iv cannulas. Went over diabetes education and answered all questions. Pt and spouse indicated understanding. Pt discharged home to 's care.
[2024-07-25] MEDS ORDERED: LISINOPRIL 5 MG/TAB PO SCH (21:00)
[2024-07-26] MEDS ORDERED: TAMSULOSIN HCL 0.4 MG CAP PO SCH (09:00)
[2024-07-26] MEDS ORDERED: ATORVASTATIN CALCIUM 10 MG/TAB PO SCH (09:00)
--- NOTE | 2024-07-30 10:47 | NUR ---
Discharge follow up call completed 07/30/24. states patient is spiking elevated BS frequently and is refusing to ambulate often. states patient could move but chooses not to. Instructed to contact patient;s PCP and make them aware of his situation or return to hospital if she feels it is necessary. Case management has been notified of 's concerns. No other needs verbalized by at this time.
== END 2024-07-25 13:07 | disposition home or self-care (01) | DRG 639 ==
LOC: ED 14:45 → ED-I 18:30 → ED 18:58 → MS2 18:58 → ICU 18:58
PROVIDERS: Nurse Practitioner; ADMIT Internal Medicine; ATTEND Internal Medicine
DX: E11.10 Type 2 diabetes mellitus with ketoacidosis without coma (principal); R07.9 Chest pain, unspecified; I10 Essential (primary) hypertension; I25.10 Atherosclerotic heart disease of native coronary artery without angina pectoris; T38.3X6A Underdosing of insulin and oral hypoglycemic [antidiabetic] drugs, initial encounter; Z91.128 Patient's intentional underdosing of medication regimen for other reason; Z79.4 Long term (current) use of insulin
CPT/HCPCS: J1815; J2405; J3475; Q9967

== ENCOUNTER 2024-08-06 09:43 | Emergency (ER) | payer OTHER ==
[2024-08-06] VITALS (21 sets, daily range): BP systolic 97–135; BP diastolic 57–92
[~2024-08-06] VITALS: Ht 172.7 cm; Wt 97.0 kg
[~2024-08-06 09:43] MED LIST changes: +HUMALOG100 UNIT SC
[2024-08-06] MEDS ORDERED: SODIUM CHLORIDE 0.9% 1,000 ML IV ONE ×2 (10:15→14:40)
[2024-08-06 10:39] LABS: BASO% 0.2 % (0-3); EOS% 0.7 % (0-8); IMMATURE GRANULOCYTES 0.2 % (0.0-5.0); LYMPH% 15.1 % (15-41); MEAN CELL VOLUME 81.4 fL CALC (80.0-100.0); MEAN CORPUSCULAR HGB 25.2 pG CALC (26.0-32.0); MONO% 5.9 % (2-13); NEUT# 8.1 thou/uL (1.82-7.42); NEUT% 77.9 % (42-76); RED BLOOD COUNT 3.97 mill/uL (4.70-6.10); RED CELL DISTRI WIDTH 14.4 % (11.5-15.5)
[2024-08-06 11:17] LABS: HEMATOCRIT 32.3 % (39.0-50.0)
[2024-08-06 11:40] LABS: BILIRUBIN, TOTAL 0.4 mg/dL (0.2-1.3); CREATININE 0.8 mg/dL (0.7-1.3); POTASSIUM 4.1 mmol/l (3.5-5.1); TOTAL PROTEIN 6.4 g/dL (6.3-8.2)
[2024-08-06 11:42] LABS: ALBUMIN 2.8 g/dL (3.2-5.0)
[2024-08-06] MEDS ORDERED: VANCOMYCIN HCL 1 GM in SODIUM CHLORIDE 0.9% 500 ML IV ONE ×2 (14:40→15:25)
[2024-08-06] MEDS ORDERED: PIPERACILLIN Sodium-Tazobactam 3.375 GM in SODIUM CHLORIDE 0.9% 100 ML IV ONE ×2 (14:40→15:25)
[2024-08-06] MEDS ORDERED: BACTRIM DS1 TAB PO (14:47)
[2024-08-06] MEDS ORDERED: CEPHALEXIN500 M1 PO (14:47)
--- NOTE | 2024-08-06 16:33 | NUR ---
S: GWEN CRUZ is a 63 M who presents with hip abscess / post surgical infection. He has a history of diabetes. O: VS: BP 135/83, P 105, RR 18,T 98.9 W 97 kg, HT 68 in, Scr= 0.8,CrCl= 109 ml/min A: Blood culture is pending. P: Vancomycin ordered for pharmacy to dose. Start Vancomycin 1gm IV Q8H. Vancomycin trough is drawn before the 4th dose on 08/07/24 1530. Vancomycin goal trough is between <10-15 mcg/ml>. Pharmacy will follow and or advise on antibiotics use as needed.
[2024-08-06] MEDS ORDERED: CEFEPIME HYDROCHLORIDE 2 GM in SODIUM CHLORIDE 0.9% 100 ML IV SCH (21:00)
[2024-08-07] VITALS (15 sets, daily range): BP systolic 101–130; BP diastolic 56–78
[2024-08-07] MEDS ORDERED: VANCOMYCIN HCL 1 GM in SODIUM CHLORIDE 0.9% 250 ML IV SCH
[2024-08-07] MEDS ORDERED: VANCOMYCIN HCL 1 GM/VIAL IV ONE (08:02)
== END 2024-08-07 16:00 | DRG 561 ==
LOC: ED 09:43
PROVIDERS: Family Medicine
DX: T84.52XA Infection and inflammatory reaction due to internal left hip prosthesis, initial encounter (principal); I10 Essential (primary) hypertension; E11.9 Type 2 diabetes mellitus without complications; Y83.1 Surgical operation with implant of artificial internal device as the cause of abnormal reaction of the patient, or of later complication, without mention of misadventure at the time of the procedure; Z96.642 Presence of left artificial hip joint; Z79.4 Long term (current) use of insulin
CPT/HCPCS: J0692; J2543; J3370; Q9967

== ENCOUNTER 2024-09-09 11:25 | Inpatient (IN) | payer OTHER ==
[2024-09-09] VITALS (35 sets, daily range): BP systolic 116–203; BP diastolic 61–141
[~2024-09-09] VITALS: Ht 172.7 cm; Wt 81.5 kg
[~2024-09-09 11:25] MED LIST changes: +CEPHALEXIN500 M1 PO
[2024-09-09] MEDS ORDERED: VANCOMYCIN HCL 1 GM in SODIUM CHLORIDE 0.9% 500 ML IV ONE (11:40)
[2024-09-09] MEDS ORDERED: INSULIN REGULAR (HUMAN) 100 UNIT/ML INJ IV ONE (11:40)
[2024-09-09] MEDS ORDERED: SODIUM CHLORIDE 0.9% 1,000 ML IV ONE ×2 (11:40)
[2024-09-09 12:07] LABS: BASO% 0.4 % (0-3); EOS% 0.6 % (0-8); IMMATURE GRANULOCYTES 0.1 % (0.0-5.0); LYMPH% 18.7 % (15-41); MEAN CELL VOLUME 83.7 fL CALC (80.0-100.0); MEAN CORPUSCULAR HGB 25.4 pG CALC (26.0-32.0); MEAN CORPUSCULAR HGB CONC 30.4 g/dL CAL (32.0-36.0); MONO% 6.1 % (2-13); NEUT# 4.94 thou/uL (1.82-7.42); NEUT% 74.1 % (42-76); RED BLOOD COUNT 5.08 mill/uL (4.70-6.10); RED CELL DISTRI WIDTH 16.7 % (11.5-15.5)
[2024-09-09 12:08] LABS: HEMATOCRIT 42.5 % (39.0-50.0); HEMOGLOBIN 12.9 g/dl (14.0-18.0)
[2024-09-09 12:24] LABS: BUN 23 mg/dL (8-23); BUN/CREATININE RATIO 20 (12-20 (CALC)); CHLORIDE 103 mmol/l (95-108); CREATININE 1.1 mg/dL (0.7-1.3); ESTIMATED GFR 76 ML/MIN (>=90 (CALC)); SGOT/AST 25 u/l (19-48); SODIUM 139 mmol/l (137-146)
[2024-09-09 12:36] LABS: ETHYL ALCOHOL 0 mg/dl (0-30)
[2024-09-09 12:48] LABS: ALBUMIN 4.6 g/dL (3.2-5.0); ALKALINE PHOSPHATASE 123 u/l (38-126); ANION GAP 26 (6-22 (CALC)); BILIRUBIN, TOTAL 0.7 mg/dL (0.2-1.3); CARBON DIOXIDE 15 mmol/l (22-30); POTASSIUM 5.3 mmol/l (3.5-5.1); TOTAL PROTEIN 8.9 g/dL (6.3-8.2)
[2024-09-09] MEDS ORDERED: OXYBUTYNIN CHLOR5 M2 (12:55)
[2024-09-09] MEDS ORDERED: INSULIN REGULAR (HUMAN) IN SOD 100 ML IV PRN ×2 (13:00→15:40)
[2024-09-09 13:31] LABS: URINE BLOOD DIPSTICK Trace-lysed (NEGATIVE); URINE GLUCOSE - DIPSTICK 500 mg/dL (NEGATIVE); URINE KETONE 80 mg/dL (NEGATIVE); URINE LEUK ESTERASE Negative (NEGATIVE); URINE NITRITE - DIPSTICK Negative (Negative); URINE PROTEIN - DIPSTICK 30 mg/dL (NEG-TRACE); URINE SPECIFIC GRAVITY 1.015; URINE UROBILINOGEN - DIPSTICK 0.2 E.U./dL (0.2)
[2024-09-09 13:36] LABS: URINE COLOR Yellow
[2024-09-09 13:42] LABS: URINE RBC 0-2 RBC/hpf (0-5); URINE WBC 0-2 WBC/hpf (0-5)
[2024-09-09 13:43] LABS: URINE HYALINE CAST FEW lpf (NONE-RARE)
[2024-09-09] MEDS ORDERED: ALTEPLASE, RECOMBINANT 2 MG/VIAL IV ONE ×2 (13:55→14:05)
[2024-09-09] MEDS ORDERED: SODIUM CHLORIDE 0.9% 1,000 ML IV PRN ×2 (15:40→22:20)
[2024-09-09] MEDS ORDERED: POTASSIUM CHLORIDE IN NACL 1,000 ML IV PRN (15:40)
[2024-09-09] MEDS ORDERED: MAGNESIUM HYDROXIDE 30 ML UDC PO PRN (15:40)
[2024-09-09] MEDS ORDERED: SODIUM CHLORIDE 0.45% 1,000 ML IV PRN (15:40)
[2024-09-09] MEDS ORDERED: DEXTROSE 5% w/NACL 0.45 1,000 ML IV PRN (15:40)
[2024-09-09] MEDS ORDERED: D5 1/2 NaCL W/KCL 20MEQ 1,000 ML IV PRN (15:40)
[2024-09-09] MEDS ORDERED: POTASSIUM CHLORIDE 20MEQ 100 ML IV PRN (15:40)
[2024-09-09] MEDS ORDERED: ACETAMINOPHEN 325 MG/TAB PO PRN (15:40)
[2024-09-09 19:04] LABS: POTASSIUM 4.1 mmol/l (3.5-5.1)
[2024-09-09] MEDS ORDERED: ENOXAPARIN SODIUM 40 MG/0.4 ML SYR SC SCH (21:00)
[2024-09-09] MEDS ORDERED: INSULIN GLARGINE 100 UNITS/ML SC SCH (22:01)
[2024-09-09] MEDS ORDERED: DEXTROSE 250 ML IV PRN ×2 (22:05→22:15)
[2024-09-09 22:17] LABS: CREATININE 0.9 mg/dL (0.7-1.3); POTASSIUM 3.9 mmol/l (3.5-5.1)
[2024-09-09] MEDS ORDERED: VANCOMYCIN HCL 1 GM in SODIUM CHLORIDE 0.9% 250 ML IV SCH (23:00)
[2024-09-10] VITALS (26 sets, daily range): BP systolic 104–177; BP diastolic 71–120
[2024-09-10 05:36] LABS: MEAN CELL VOLUME 84.7 fL CALC (80.0-100.0); MEAN CORPUSCULAR HGB 25.9 pG CALC (26.0-32.0); MEAN CORPUSCULAR HGB CONC 30.6 g/dL CAL (32.0-36.0); RED BLOOD COUNT 4.24 mill/uL (4.70-6.10)
[2024-09-10 05:46] LABS: HEMATOCRIT 35.9 % (39.0-50.0)
[2024-09-10 05:54] LABS: CREATININE 0.9 mg/dL (0.7-1.3); POTASSIUM 3.5 mmol/l (3.5-5.1)
[2024-09-10 05:58] LABS: ALBUMIN 3.4 g/dL (3.2-5.0); BILIRUBIN, TOTAL 0.4 mg/dL (0.2-1.3); TOTAL PROTEIN 7.1 g/dL (6.3-8.2)
[2024-09-10] MEDS ORDERED: INSULIN LISPRO 100 UNITS/ML ML SC SCH (07:00)
[2024-09-10] MEDS ORDERED: FINASTERIDE 5 MG/TAB PO SCH (09:00)
[2024-09-10] MEDS ORDERED: TAMSULOSIN HCL 0.4 MG CAP PO SCH (09:00)
[2024-09-10] MEDS ORDERED: ASPIRIN EC 81 MG/TAB PO SCH (09:00)
[2024-09-10] MEDS ORDERED: VANCOMYCIN HCL 1 GM in SODIUM CHLORIDE 0.9% 250 ML IV SCH (11:00)
[2024-09-10] MEDS ORDERED: ATORVASTATIN CALCIUM 10 MG/TAB PO SCH (21:00)
[2024-09-10] MEDS ORDERED: INSULIN GLARGINE 100 UNITS/ML SC SCH (21:00)
[2024-09-10] MEDS ORDERED: LISINOPRIL 5 MG/TAB PO SCH (21:00)
[2024-09-11] VITALS (9 sets, daily range): BP systolic 105–142; BP diastolic 66–88
== END 2024-09-11 10:00 | disposition home health service (06) | DRG 638 ==
LOC: ED 11:25 → ED-I 13:30 → ED 13:45 → ICU 13:46
PROVIDERS: Family Medicine; ADMIT Internal Medicine; ATTEND Internal Medicine
DX: E11.10 Type 2 diabetes mellitus with ketoacidosis without coma (principal); M00.052 Staphylococcal arthritis, left hip; B95.62 Methicillin resistant Staphylococcus aureus infection as the cause of diseases classified elsewhere; S00.03XA Contusion of scalp, initial encounter; I10 Essential (primary) hypertension; I25.10 Atherosclerotic heart disease of native coronary artery without angina pectoris; W18.30XA Fall on same level, unspecified, initial encounter; Y92.009 Unspecified place in unspecified non-institutional (private) residence as the place of occurrence of the external cause; T84.52XD Infection and inflammatory reaction due to internal left hip prosthesis, subsequent encounter; Y83.1 Surgical operation with implant of artificial internal device as the cause of abnormal reaction of the patient, or of later complication, without mention of misadventure at the time of the procedure; T50.916A Underdosing of multiple unspecified drugs, medicaments and biological substances, initial encounter; Z91.128 Patient's intentional underdosing of medication regimen for other reason; Z79.4 Long term (current) use of insulin; Z96.642 Presence of left artificial hip joint
CPT/HCPCS: J1650; J1815; J2997; J3370

== ENCOUNTER 2024-09-12 07:39 | Emergency (ER) | payer OTHER ==
[~2024-09-12] VITALS: Ht 172.7 cm; Wt 84.0 kg
[2024-09-12] VITALS (29 sets, daily range): BP systolic 124–160; BP diastolic 75–102
[~2024-09-12 07:39] MED LIST changes: +OXYBUTYNIN CHLOR5 M2
[2024-09-12] MEDS ORDERED: LACTATED RINGER'S 1,000 ML IV ONE (08:15)
[2024-09-12] MEDS ORDERED: INSULIN REGULAR (HUMAN) 100 UNIT/ML INJ IV ONE (08:15)
[2024-09-12 08:19] LABS: BASO% 0.7 % (0-3); EOS% 0.2 % (0-8); HEMATOCRIT 33.5 % (39.0-50.0); HEMOGLOBIN 10.5 g/dl (14.0-18.0); IMMATURE GRANULOCYTES 0.2 % (0.0-5.0); LYMPH% 12.4 % (15-41); MEAN CELL VOLUME 82.7 fL CALC (80.0-100.0); MEAN CORPUSCULAR HGB 25.9 pG CALC (26.0-32.0); MEAN CORPUSCULAR HGB CONC 31.3 g/dL CAL (32.0-36.0); MONO% 4.7 % (2-13); NEUT# 3.69 thou/uL (1.82-7.42); NEUT% 81.8 % (42-76); RED BLOOD COUNT 4.05 mill/uL (4.70-6.10); RED CELL DISTRI WIDTH 17.1 % (11.5-15.5)
[2024-09-12 08:30] LABS: ALBUMIN 3.6 g/dL (3.2-5.0); ALKALINE PHOSPHATASE 97 u/l (38-126); ANION GAP 12 (6-22 (CALC)); BILIRUBIN, TOTAL 0.4 mg/dL (0.2-1.3); BUN 10 mg/dL (8-23); BUN/CREATININE RATIO 13 (12-20 (CALC)); CARBON DIOXIDE 25 mmol/l (22-30); CHLORIDE 104 mmol/l (95-108); CREATININE 0.8 mg/dL (0.7-1.3); ESTIMATED GFR 101 ML/MIN (>=90 (CALC)); SGOT/AST 21 u/l (19-48); SODIUM 138 mmol/l (137-146); TOTAL PROTEIN 6.9 g/dL (6.3-8.2)
[2024-09-12 10:38] LABS: URINE BILIRUBIN - DIPSTICK Negative (NEGATIVE); URINE BLOOD DIPSTICK Negative (NEGATIVE); URINE GLUCOSE - DIPSTICK 500 mg/dL (NEGATIVE); URINE KETONE 15 mg/dL (NEGATIVE); URINE LEUK ESTERASE Negative (NEGATIVE); URINE NITRITE - DIPSTICK Negative (Negative); URINE PROTEIN - DIPSTICK Negative (NEG-TRACE); URINE UROBILINOGEN - DIPSTICK 0.2 E.U./dL (0.2)
[2024-09-12 10:43] LABS: URINE COLOR Yellow
== END 2024-09-12 15:45 | DRG 101 ==
LOC: ED 07:39
PROVIDERS: Emergency Medicine
DX: R56.9 Unspecified convulsions (principal); E11.65 Type 2 diabetes mellitus with hyperglycemia; I10 Essential (primary) hypertension; Z79.4 Long term (current) use of insulin
CPT/HCPCS: J1953